=== PATIENT | female | born 1950 | race African-American/Black ===

== ENCOUNTER 2016-08-22 21:47 | Inpatient (IN) | payer MEDICARE, MEDICAID ==
[~2016-08-22] VITALS: Ht 170.2 cm; Wt 62.1 kg
[2016-08-22] MEDS ORDERED: SEROQUEL XR400 MG ORAL (22:57)
[2016-08-22] MEDS ORDERED: DIPHENHYDRAMINE25 M3 ORAL (23:46)
[2016-08-22] MEDS ORDERED: DICLOFENAC SODI50 MG ORAL (23:46)
[2016-08-22] MEDS ORDERED: METFORMIN HCL500 M1 ORAL (23:46)
[2016-08-22] MEDS ORDERED: LORATADINE10 M2 PO (23:46)
[2016-08-22] MEDS ORDERED: DOC-Q-LACE100 M1 ORAL (23:46)
[2016-08-22] MEDS ORDERED: ASPIRIN81 MG ORAL (23:46)
[2016-08-22] MEDS ORDERED: SERTRALINE HCL25 MG ORAL (23:46)
[2016-08-22] MEDS ORDERED: SIMVASTATIN20 MG ORAL (23:46)
[2016-08-22] MEDS ORDERED: HYDROCHLOROTH12.5 M2 ORAL (23:46)
[2016-08-22] MEDS ORDERED: METOPROLOL SUCC25 MG ORAL (23:46)
[2016-08-22] MEDS ORDERED: OXYCODON-ACETA1 EAC2 ORAL (23:46)
[2016-08-22] MEDS ORDERED: MIRTAZAPINE15 M1 ORAL (23:46)
[2016-08-22] MEDS ORDERED: FERROUS SULFAT325 MG ORAL (23:46)
[2016-08-22] MEDS ORDERED: BACLOFEN10 MG ORAL (23:46)
[2016-08-23] VITALS: BP 132/64
[2016-08-23] MEDS ORDERED: Baclofen ORAL (00:49)
[2016-08-23] MEDS: Promethazine/Codeine 5ml UD ORAL PRN ×3 (01:43→11:48)
[2016-08-23] MEDS ORDERED: LORazepam Inj 2mg/ml 1ml IV ONE (02:00)
[2016-08-23] MEDS ORDERED: Cefepime 1gm/D5W 55ml IVPB ONE ×2 (02:30)
[2016-08-23] MEDS ORDERED: Cefepime 1gm vial ONE (02:45)
[2016-08-23 04:00] VITALS: BP 136/79
[2016-08-23] MEDS ORDERED: Docusate 250mg cap ORAL PRN (06:00)
[2016-08-23] MEDS: metroNIDAZOLE 500mg tab ORAL SCH ×3 (06:13→21:17)
[2016-08-23 08:00] VITALS: BP 158/78
[2016-08-23 08:04] LABS: MEAN CORPUSCULAR HEMOGLOBIN 25.7 PG (27.0-31.0); MEAN CORPUSCULAR HGB CONC 31.4 G/DL (32.0-36.0); MEAN CORPUSCULAR VOLUME 82 FL (80-99); MEAN PLATELET VOLUME 5.3 FL (6.5-10.1); PLATELET COUNT 439 K/UL (150-450); RED BLOOD COUNT 2.86 M/UL (4.20-5.40); RED CELL DISTRIBUTION WIDTH 17.3 % (11.6-14.8)
[2016-08-23 08:12] LABS: ANION GAP 19 (5-15); CALCIUM 9.5 mg/dL (8.6-10.2); CARBON DIOXIDE 20 mEQ/L (20-30); CHLORIDE 95 mEQ/L (98-107); CREATININE 0.7 mg/dL (0.5-0.9); GLOMERULAR FILTRATION RATE > 60 mL/min (>60); HEMOLYSIS 0; MAGNESIUM 1.6 mg/dL (1.7-2.5); PHOSPHORUS 2.7 mg/dL (2.5-4.8); POTASSIUM 3.3 mEQ/L (3.4-4.9); SODIUM 134 mEQ/L (135-145)
[2016-08-23 08:21] LABS: WHITE BLOOD COUNT 28.2 K/UL (4.8-10.8)
[2016-08-23] MEDS: Sertraline 50mg tab ORAL SCH (09:15)
[2016-08-23 10:48] LABS: ANISOCYTOSIS 1+; BAND NEUTROPHILS % (MANUAL) 0 % (0-8); BASOPHILS % (MANUAL) 0 % (0-2); EOSINOPHILS % (MANUAL) 0 % (0-3); HYPOCHROMASIA 1+; LYMPHOCYTES % (MANUAL) 8 % (20-45); NEUTROPHILS % (MANUAL) 89 % (45-75); PLATELET ESTIMATE ADEQUATE; PLATELET MORPHOLOGY NORMAL; TOTAL CELLS COUNTED 100
[2016-08-23] MEDS ORDERED: DiphenhydrAMINE 25mg/10ml Elixir ORAL PRN (11:45)
[2016-08-23] MEDS ORDERED: DuoNeb 0.5-3(2.5)mg/3ml neb HHN PRN (11:45)
--- NOTE | 2016-08-23 11:58 | Consultation ---
History of Present Illness General Date patient seen: Aug 23, 2016 Time patient seen: 11:52 Chief Complaint: hemoptysis Referring physician: Dr. Alba Reason for Consultation: dyspnea Present Illness HPI 75 year old female with hx of breast and lung CA, visiting from [place], was taken to [facility] with cc of uncontrolled htn and hemoptysis. The cxr in [place] revealed that she has right upper lobe mass. She was transferred to [facility] for further care. Currently the entire family is in the room. The daughters help with the PMHx. She looks comfortable, slightly confused, coughing up blood at times. Allergies: Coded Allergies: IBUPROFEN (Verified Allergy, Unknown, 08/23/16) Medication History Scheduled Docusate Sodium (Doc-Q-Lace), 100 MG ORAL PRN, (Reported) Ferrous Sulfate* (Ferrous Sulfate*), 325 MG ORAL DAILY, (Reported) Loratadine (Loratadine), 10 MG PO DAILY, (Reported) Metformin Hcl* (Metformin Hcl*), 500 MG ORAL TWICE A DAY, (Reported) Metoprolol Succinate* (Metoprolol Succinate*), 25 MG ORAL TWICE A DAY, (Reported ) Mirtazapine (Mirtazapine), 15 MG ORAL BEDTIME, (Reported) Oxycodone Hcl/Acetaminophen 7.5-325 (Oxycodon-Acetaminophen 7.5-325), 1 TAB ORAL BID, (Reported) Quetiapine Fumarate (Seroquel Xr), 400 MG ORAL BEDTIME, (Reported) Sertraline Hcl* (Sertraline Hcl*), 50 MG ORAL DAILY, (Reported) [Baclofen*], 10 MG ORAL PRN, (Reported) Scheduled PRN Diphenhydramine Hcl (Diphenhydramine Hcl), 25 MG ORAL BEDTIME PRN for Itching, ( Reported) Miscellaneous Medications Hydrochlorothiazide* (Hydrochlorothiazide*), 12.5 MG ORAL, (Reported) Discontinued Medications Aspirin* (Aspirin*), 81 MG ORAL DAILY, (Reported) Discontinued Reason: MD discontinued med Baclofen* (Baclofen*), 10 MG ORAL TWICE A DAY, (Reported) Discontinued Reason: Prescription changed Diclofenac Sod* (Voltaren*), 50 MG ORAL TWICE A DAY, (Reported) Discontinued Reason: MD discontinued med Simvastatin (Zocor), 20 MG ORAL BEDTIME, (Reported) Discontinued Reason: MD discontinued med Patient History Healthcare decision maker pt alert and oriented Resuscitation status Full Code Advanced Directive on File Past Medical/Surgical History Past Medical/Surgical History: (1) Lung cancer Review of Systems Respiratory: Reports: cough, other - hemoptysis, shortness of breath Physical Exam General Appearance: cachetic Lines, tubes and drains: peripheral HEENT: normocephalic, atraumatic Neck: non-tender, normal alignment Respiratory/Chest: chest wall non-tender, lungs clear Breasts: no masses Cardiovascular/Chest: normal peripheral pulses Abdomen: normal bowel sounds, non tender Genitourinary/Rectal: normal genital exam Extremities: normal range of motion Skin Exam: normal pigmentation Last 24 Hour Vital Signs Date Time Temp Pulse Resp B/P Pulse Ox O2 Delivery O2 Flow Rate FiO2 08/23/16 09:15 91 158/78 08/23/16 08:00 98.2 91 19 158/78 99 Nasal Cannula 08/23/16 04:00 97.0 89 20 136/79 94 Room Air 08/23/16 04:00 92 08/23/16 00:00 92 08/23/16 00:00 97.0 85 20 132/64 94 Room Air Intake and Output 08/22/16 08/23/16 19:00 07:00 Intake Total 110 ml Balance 110 ml Intake Oral 0 ml IV Total 110 ml Laboratory Tests Test 08/23/16 07:30 White Blood Count 28.2 K/UL (4.8-10.8) *H Red Blood Count 2.86 M/UL (4.20-5.40) L Hemoglobin 7.3 G/DL (12.0-16.0) L Hematocrit 23.4 % (37.0-47.0) L Mean Corpuscular Volume 82 FL (80-99) Mean Corpuscular Hemoglobin 25.7 PG (27.0-31.0) L Mean Corpuscular Hemoglobin Concent 31.4 G/DL (32.0-36.0) L Red Cell Distribution Width 17.3 % (11.6-14.8) H Platelet Count 439 K/UL (150-450) Mean Platelet Volume 5.3 FL (6.5-10.1) L Neutrophils (%) (Auto) % (45.0-75.0) Lymphocytes (%) (Auto) % (20.0-45.0) Monocytes (%) (Auto) % (1.0-10.0) Eosinophils (%) (Auto) % (0.0-3.0) Basophils (%) (Auto) % (0.0-2.0) Differential Total Cells Counted 100 Neutrophils % (Manual) 89 % (45-75) H Lymphocytes % (Manual) 8 % (20-45) L Monocytes % (Manual) 3 % (1-10) Eosinophils % (Manual) 0 % (0-3) Basophils % (Manual) 0 % (0-2) Band Neutrophils 0 % (0-8) Platelet Estimate Adequate Platelet Morphology Normal Hypochromasia 1+ Anisocytosis 1+ Sodium Level 134 mEQ/L (135-145) L Potassium Level 3.3 mEQ/L (3.4-4.9) L Chloride Level 95 mEQ/L (98-107) L Carbon Dioxide Level 20 mEQ/L (20-30) Anion Gap 19 (5-15) H Blood Urea Nitrogen 16 mg/dL (7-23) Creatinine 0.7 mg/dL (0.5-0.9) Estimat Glomerular Filtration Rate > 60 mL/min (>60) Glucose Level 199 mg/dL (74-106) H Calcium Level 9.5 mg/dL (8.6-10.2) Phosphorus Level 2.7 mg/dL (2.5-4.8) Magnesium Level 1.6 mg/dL (1.7-2.5) L Height (Feet): 5 Height (Inches): 7.00 Weight (Pounds): 137 Medications Current Medications Medications (Trade) Dose Ordered Sig/Mariola Route PRN Reason Start Time Stop Time Status Last Admin Dose Admin Acetaminophen (Tylenol) 650 mg Q6H PRN ORAL Mild Pain/Temp > 100.5 08/23/16 00:15 09/22/16 00:14 Baclofen 10 mg 10 mg PRN PRN ORAL Muscle Spasm 08/23/16 06:00 09/22/16 05:59 Cefepime HCl/ Dextrose (Maxipime/D5W) 55 ml @ 110 mls/hr Q24H IVPB 08/23/16 22:00 08/30/16 21:59 Diphenhydramine HCl (Benadryl) 25 mg HSPRN PRN ORAL Insomnia 08/23/16 06:00 09/22/16 05:59 Docusate Sodium (Colace) 100 mg DAILY PRN ORAL Constipation 08/23/16 06:00 09/22/16 05:59 Ferrous Sulfate (Feosol) 325 mg DAILY ORAL 08/23/16 09:00 09/22/16 08:59 08/23/16 09:15 Fexofenadine HCl (Scarlett) 60 mg TWICE A DAY ORAL 08/23/16 09:00 09/22/16 08:59 08/23/16 10:22 Hydrochlorothiazide (Hydrodiuril) 12.5 mg DAILY ORAL 08/23/16 09:00 09/22/16 08:59 08/23/16 09:15 Magnesium Sulfate (Magnesium Sulfate 1gm/100ml) 100 ml @ 100 mls/hr Q1H IVPB 08/23/16 11:30 08/23/16 13:29 UNV Metoprolol Succinate (Toprol XL) 25 mg TWICE A DAY ORAL 08/23/16 09:00 09/22/16 08:59 08/23/16 09:15 Metronidazole (Flagyl) 500 mg Q8HR ORAL 08/23/16 06:00 08/30/16 05:59 08/23/16 06:13 Potassium Chloride (K-Dur) 40 meq ONCE ONCE ORAL 08/23/16 11:30 08/23/16 11:31 UNV Promethazine HCl/ Codeine (Phenergan with Codeine) 5 ml Q4H PRN ORAL For Cough 08/23/16 01:30 09/22/16 01:29 08/23/16 06:13 Quetiapine Fumarate (SEROquel) 400 mg Q24HRS ORAL 08/23/16 21:00 09/22/16 20:59 Sertraline HCl (Zoloft) 50 mg DAILY ORAL 08/23/16 09:00 09/22/16 08:59 08/23/16 09:15 Assessment/Plan Problem List: (1) Hemoptysis ICD Codes: R04.2 - Hemoptysis SNOMED: 84942268 (2) Sepsis ICD Codes: A41.9 - Sepsis, unspecified organism SNOMED: 51152737 (3) Pneumonia ICD Codes: J18.9 - Pneumonia, unspecified organism SNOMED: 237648256 (4) Lung cancer ICD Codes: C34.90 - Malignant neoplasm of unspecified part of unspecified bronchus or lung SNOMED: 815853327 (5) HTN (hypertension) ICD Codes: I10 - Essential (primary) hypertension SNOMED: 59529824 Assessment/Plan mejia cultures IV antibiotics Amicar for bleeding respiratory treatment JUSTIN LANG Aug 23, 2016 11:58
[2016-08-23 12:00] VITALS: BP 136/72
--- NOTE | 2016-08-23 13:33 | Diagnostic Imaging Report ---
Indications: Hemoptysis, history of lung and breast cancer Technique: Continuous helical CT imaging of the thorax and upper abdomen was performed with automatic exposure control on a Siemens sensation [address] scanner. Axial images were reconstructed at 5 mm slice thickness and interval. Coronal images were reconstructed at 5 mm slice thickness. No IV contrast was administered secondary to requesting physician's order, despite no contraindications listed. CTDI volume(s): 19 mGy Total DLP: 656 mGy-cm Findings: Comparison: Chest radiograph 12/28/2011 Lack of IV contrast limits evaluation. Circumscribed masslike consolidative opacity occupies much of the right upper lobe, 10 x 7 x 8 cm. It contains several small gas bubbles in its cephalad aspect. It extends to the apical, lateral, and medial pleural margins without obvious invasion into the overlying chest wall or adjacent mediastinum. It is contiguous with abnormal soft tissue density in the right hilum and adjacent portions of mediastinum. This process partially envelops the right mainstem bronchus and bronchus intermedius. There is associated complete obstruction of the right upper lobe bronchus at its origin. Patchy parenchymal consolidation and increased interstitial markings are present in the residual portions of right upper lobe adjacent to the masslike opacity and right hilum. Patchy mixed interstitial and consolidative airspace opacities are present in the right middle and lower lobes. Right lung volume is overall significantly decreased compared left with elevation of right hemidiaphragm and mild rightward shift of cardiomediastinal structures. Multiple small circumscribed noncalcified nodules are scattered throughout the periphery of the left lung. No pleural abnormality demonstrated bilaterally. Heart is normal in size. No pericardial abnormality is demonstrated. Scattered arterial mural calcifications are present including prominent coronary artery involvement. Vascular patency is indeterminate. Thoracic aorta is not aneurysmal. Multiple surgical clips are present in the right axilla. Edema is present throughout the chest wall subcutaneous soft tissues. Prominent lymph nodes are present in the left axilla measuring up to 2 cm in diameter. Imaged upper abdominal anatomy is unremarkable. Small disc marginal osteophytes are scattered throughout the thoracic spine. Moderate compression fracture of the superior endplate of the T7 vertebral body with subjacent sclerosis. No associated posterior element involvement or underlying lytic destructive process. Chronic appearing deformity and probable healed surgical defect of the sternal manubrium. No focal lytic or sclerotic skeletal lesions identified. IMPRESSION: 10 cm masslike opacity right upper lobe compatible with primary lung malignancy, apparently contiguous with right hilar and mediastinal adenopathy. Associated complete obstruction of right upper lobe bronchus with overall right lung volume loss Nonspecific mixed interstitial and alveolar opacities in the remainder of the right upper lobe, right midlung lower lobes, nonspecific, may be inflammatory or neoplastic in nature Multiple left lung nodules--granulomatous versus metastatic Arteriosclerosis Previous right axillary surgery Mild left axillary adenopathy Chronic-appearing post surgical deformity sternal manubrium T7 vertebral body compression fracture likely old Mild degenerative spondylosis
[2016-08-23] MEDS ORDERED: Aminocaproic Acid Inj 5,000 MG in NS 110 ML IV ONE (14:00)
[2016-08-23] MEDS ORDERED: Vancomycin 1250mg/D5W 275ml IVPB ONE ×2 (15:00)
--- NOTE | 2016-08-23 15:24 | Diagnostic Imaging Report ---
Indications: Hemoptysis, lung cancer, breast cancer Technique: Continuous helical CT imaging of the thorax and upper abdomen was performed with automatic exposure control following intravenous administration of nonionic iodine contrast, on a Siemens sensation [address] scanner. Axial, coronal, and sagittal images were reconstructed at 5 mm slice thickness. CTDI volume(s): 8, 81, 15 mGy Total DLP: 611 mGy-cm Findings: Comparison: Noncontrast CT scan of the thorax performed earlier today Main, right, and left pulmonary arteries are patent and well-opacified without obvious intraluminal filling defect. Right pulmonary artery is encased by abnormal low attenuation soft tissue/adenopathy. One of its upper lobe branches within the large right upper lobe mass previously described gives rise to a 3.3 cm multilobulated extraluminal contrast collection within the mass. Cephalad to this, the mass contains a 5.5 cm circumscribed area of decreased attenuation, at the interface of which resides several small gas bubbles. A cluster of additional small gas bubbles is present within the central aspect of the mass, adjacent to the occluded origin of the right upper lobe bronchus. The mass and contiguous hilar/mediastinal adenopathy encases and severely, irregularly narrows the superior vena cava, minimal diameter 1.5 mm, the latter apparently containing several globular low attenuation intraluminal filling defects. One of these resides at the level of the junction of the unopacified right and contrast injection opacified left brachiocephalic veins, the other at the level of the cavoatrial junction. No obvious filling defects are identified within the heart chambers themselves. Thoracic aorta and great vessels are patent and well-opacified with mild scattered calcified plaquing, normal in caliber and configuration. No evidence of aneurysm, dissection,, leak, or invasion. Bilateral pulmonary parenchymal opacities previously described are unchanged. No other interval change. 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 This is at considerable risk of spontaneous rupture and intrathoracic versus intrabronchial exsanguination. 5.5 cm area of low attenuation within cephalad portion of mass likely represents necrosis. Small gas bubbles at the periphery may be part of the chronic process and/or represent pathologic communication with bronchus. Significant compression of superior vena cava by mass. Intraluminal filling defect within upper portion of superior vena cava and may represent unopacified blood entering from right brachiocephalic vein, bland or tumor thrombus. Intraluminal filling defect at cavoatrial junction or suspicious for bland versus tumor thrombus. No other significant interval change or additional findings compared to previous exam. Critical results discussed with Drs. Alba and Gui, , by telephone at time of this dictation
[2016-08-23 15:57] VITALS: BP 152/68
--- NOTE | 2016-08-23 17:35 | History & Physical ---
History and Physical History & Physicial Dictated for Int Med - Dr Alba no. [id number]. Transfuse 2 units PRBC today. CHELLY CHEN Aug 23, 2016 17:35
[2016-08-23 20:00] VITALS: BP 151/68
--- NOTE | 2016-08-23 20:28 | History and Physical Report ---
DATE OF ADMISSION: 08/22/[address] Alba. CHIEF COMPLAINT: The patient is a 66-year-old female, presents with chief complaint of coughing up blood. HISTORY OF PRESENT ILLNESS: The patient has a history of breast cancer, status post radiation therapy. The patient was diagnosed with metastatic breast cancer 90 days ago. The patient now has a mass in her right lung. The patient states that she began to vomit blood about 90 days ago. The patient did not go to the emergency room. The patient states she began to cough up more blood yesterday, 08/22/2016. The patient was taken by EMS to [facility] emergency room. The patient was stabilized. The patient is transported to [facility] for insurance purposes. The patient is admitted with chief complaint of hemoptysis and right upper lobe lung cancer. Hemoptysis and lung cancer. Of note, the patient was diagnosed with right upper lobe pneumonia at [place]. PAST MEDICAL HISTORY: Significant for 1. Right breast cancer status post radiation therapy. 2. Diabetes type 2. 3. Hypertension. 4. Hypercholesterolemia. 5. Depression. 6. History of right breast cancer. 7. History of right lung cancer. PAST SURGICAL HISTORY: Significant for coronary artery bypass graft in 2007. CURRENT MEDICATIONS: 1. Seroquel 400 mg one tablet p.o. at bedtime. 2. Hydrochlorothiazide 25 mg one-half tablet p.o. daily. 3. Zoloft 50 mg one tablet p.o. daily. 4. Aspirin 81 mg one tablet p.o. daily. 5. Voltaren 50 mg one tablet p.o. twice daily. 6. Claritin 10 mg one tablet p.o. daily. 7. Iron sulfate 325 mg one tablet p.o. daily. 8. Glucophage 500 mg one tablet p.o. twice daily. 9. Zocor 20 mg one tablet p.o. at bedtime. 10. Baclofen 10 mg one tablet p.o. twice daily. 11. Toprol-XL 25 mg one tablet p.o. twice daily. 12. Oxycodone 7.5/325 mg one tablet p.o. q.4 h. p.r.n. ALLERGIES: No known drug allergies. SOCIAL HISTORY: The patient is single, however, lives with her grown daughter. The patient is visiting from [place]. The patient denies tobacco use, having quit 90 days previously. The patient previously smoked one pack of tobacco daily. The patient denies alcohol use. REVIEW OF SYSTEMS: Constitutional: The patient complains of anorexia. The patient denies generalized weakness. The patient complains of fevers and chills. The patient complains of weight loss. HEENT: The patient denies ear or throat pain. The patient denies headache. Cardiovascular: The patient denies palpitations or chest pain. Chest: The patient complains of hemoptysis as above. The patient complains of shortness of breath. The patient denies wheezes. Abdomen: The patient denies nausea, vomiting, diarrhea or constipation. The patient does complain of anorexia. Neuromuscular: The patient denies seizures or generalized weakness. Genitourinary: The patient denies dysuria or increased frequency of urination. PHYSICAL EXAMINATION: VITAL SIGNS: Temperature 97 degrees, respirations 20, pulse 85 to 92, and blood pressure 132/64. Of note, the patient's temperature at [place] was 101.2 degrees Fahrenheit. HEENT: Eyes, pupils are equal and responsive to light and accommodation. Extraocular movements are intact. NECK: Supple. No lymphadenopathy. CHEST: Decreased breath sounds on the right. Otherwise, clear to auscultation without wheezes or rales. CARDIOVASCULAR: Regular rate. S1 and S2 normal without murmurs, rubs, or gallops. ABDOMEN: Soft, nontender, and nondistended. Positive bowel sounds. No evidence of hepatosplenomegaly. Currently, no rebound or guarding. EXTREMITIES: Negative for clubbing, cyanosis, or edema. RECTAL/GENITAL: Refused. NEUROLOGICAL: Cranial nerves II through XII are grossly intact without focal deficits. Motor strength is 5/5 bilaterally. Deep tendon reflexes are 2+ plantar. LABORATORY AND DIAGNOSTIC DATA: WBC 24.3, hemoglobin 7.8, hematocrit 23.5, and platelets 451,000. Sodium 135, potassium 3.7, chloride 102, CO2 22, BUN 20, creatinine 0.94 and glucose 143. Chest x-ray revealed a 9.5 x 8 centimeter right upper lobe mass with right lower lobe infiltrate. ASSESSMENT: This is a 66-year-old female 1. Fever. 2. Shortness of breath. 3. Hemoptysis. 4. Leukocytosis. 5. Anemia. 6. Right upper lobe mass. 7. Right lower lobe pneumonia. 8. Diabetes type 2. 9. Hypertension. 10. Hypercholesterolemia. 11. Coronary artery disease. 12. Depression. 13. Lung cancer. 14. Breast cancer. TREATMENT: 1. Fever/shortness of breath/hemoptysis. A Pulmonary consultation will be obtained with Dr. Messer. The patient has known right upper lobe lung mass. An Oncology consultation will be obtained with Dr. Chen. We will follow recommendations of Pulmonary and Oncology. The patient has refused chemotherapy for cancer in the past. 2. Leukocytosis, may be secondary to pneumonia as above. 3. Right upper lobe mass/right lower lobe pneumonia. As above, a Pulmonary consultation will be obtained with Dr. Ellis who is drowsy. The patient has been started empirically on vancomycin and cefepime. We will follow recommendation of Pulmonary and Oncology. 4. Diabetes type 2. The patient has been placed on a NovoLog sliding scale. 5. Hypertension. The patient is currently hypotensive. We will hold antihypertensive medications above. 6. Hypercholesterolemia. Continue Zocor as above. 7. Coronary artery disease. 8. Depression. Continue Zoloft and Seroquel as above. 9. Prognosis is poor. Austen Ellis M.D. DR: JARETH JOB#: [id number] CC:
--- NOTE | 2016-08-23 20:55 | Consultation ---
Ted ChenEris 08/23/162054: Consult Note Consult Note ONCOLOGY CONSULTATION NOTE REQUESTING MD: APRIL DATE OF CONSULT: 08/23/2016 CHIEF COMPLAINT: The patient is a 66-year-old female, presents with chief complaint of coughing up blood. ID: he patient has a history of breast cancer, status post radiation therapy. The patient was diagnosed with metastatic breast cancer recently The patient now has a mass in her right lung. The patient states that she began to vomit blood recently The patient did not go to the emergency room. The patient states she began to cough up more blood yesterday, 08/22/2016. The patient was taken by EMS to [facility] emergency room. The patient was stabilized. The patient is transported to [facility] for insurance purposes. The patient is admitted with chief complaint of hemoptysis and right upper lobe lung cancer. Oncology service and pulm/cc consulted for further eval PAST MEDICAL HISTORY: 1. Right breast cancer status post radiation therapy. 2. Diabetes type 2. 3. Hypertension. 4. Hypercholesterolemia. 5. Depression. 6. History of right breast cancer. 7. History of right lung cancer. PAST SURGICAL HISTORY: Significant for coronary artery bypass graft in 2007. CURRENT MEDICATIONS: 1. Seroquel 400 mg one tablet p.o. at bedtime. 2. Hydrochlorothiazide 25 mg one-half tablet p.o. daily. 3. Zoloft 50 mg one tablet p.o. daily. 4. Aspirin 81 mg one tablet p.o. daily. 5. Voltaren 50 mg one tablet p.o. twice daily. 6. Claritin 10 mg one tablet p.o. daily. 7. Iron sulfate 325 mg one tablet p.o. daily. 8. Glucophage 500 mg one tablet p.o. twice daily. 9. Zocor 20 mg one tablet p.o. at bedtime. 10. Baclofen 10 mg one tablet p.o. twice daily. 11. Toprol-XL 25 mg one tablet p.o. twice daily. 12. Oxycodone 7.5/325 mg one tablet p.o. q.4 h. p.r.n. ALLERGIES: No known drug allergies. SOCIAL HISTORY: single, however, lives with her grown daughter. The patient is visiting from [place]. The patient denies tobacco use, having quit 90 days previously. The patient previously smoked one pack of tobacco daily. The patient denies alcohol use. REVIEW OF SYSTEMS: Constitutional: The patient complains of anorexia. The patient denies generalized weakness. The patient complains of fevers and chills. The patient complains of weight loss. HEENT: The patient denies ear or throat pain. The patient denies headache. Cardiovascular: The patient denies palpitations or chest pain. Chest: The patient complains of hemoptysis as above. The patient complains of shortness of breath. The patient denies wheezes. Abdomen: The patient denies nausea, vomiting, diarrhea or constipation. The patient does complain of anorexia. Genitourinary: The patient denies dysuria or increased frequency of urination. PHYSICAL EXAMINATION: VITAL SIGNS: Reviewed and are stable HEENT: Eyes, pupils are equal and responsive to light and accommodation. NECK: Supple. No lymphadenopathy. CHEST: Decreased breath sounds on the right CARDIOVASCULAR: Regular rate. S1 and S2 normal without murmurs ABDOMEN: Soft, nontender, and nondistended. Positive bowel sounds. No evidence of hepatosplenomegaly. Currently, no rebound or guarding. EXTREMITIES: Negative for clubbing, cyanosis, or edema. RECTAL/GENITAL: Refused. NEUROLOGICAL: Cranial nerves II through XII are intact LABORATORY AND DIAGNOSTIC DATA: WBC 24.3, hemoglobin 7.8, hematocrit 23.5, and platelets 451,000. Sodium 135, potassium 3.7, chloride 102, CO2 22, BUN 20, creatinine 0.94 and glucose 143. Imaging: Chest x-ray revealed a 9.5 x 8 centimeter right upper lobe mass with right lower lobe infiltrate. ASSESSMENT: # 5.5 cm area of low attenuation within cephalad portion of mass likely represents necrosis. Small gas bubbles at the periphery may be part of the chronic process and/or represent pathologic communication with bronchus. 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 # Leukocytosis. # Right lower lobe pneumonia. # Diabetes type 2. # Hypertension. TREATMENT: - Given patient has refused chemotherapy/treatment before, will discuss with her in regards to conservative measures, especially as she has followup in [place] - Antibiotics as per ID/Pulm team for PNA - Appreciate pulmonary recommendations - Prognosis remains poor - Amicar for hemoptysis agree - Consider XRT for SVC compression though again she wants only conservative measures - Anemia w/u ordered - Continue ferrous sulfate and PPI - Appreciate consultation VIKTOR FITZGERALD M.D. 08/27/16 1313: Consult Note Consult Note ID Dic # [id number] Ted Chen Aug 23, 2016 20:55 VIKTOR FITZGERALD M.D. Aug 27, 2016 13:13
[2016-08-23 21:03] LABS: PATH BLOOD SMEAR/OMC SENT TO PATHOLOGIST
[2016-08-23 21:11] LABS: HEMOLYSIS 0; IRON 30 ug/dL (37-145); TOTAL IRON BINDING CAPACITY 153 ug/dL (250-400)
[2016-08-23] MEDS: oxyCONTIN 10mg tab ORAL SCH (21:16)
[2016-08-23] MEDS: QUEtiapine 200mg tab ORAL SCH (21:17)
[2016-08-23] MEDS: Dronabinol 2.5mg Cap ORAL SCH (21:17)
[2016-08-23 21:21] LABS: FERRITIN 859 ng/mL (13-150)
[2016-08-23] MEDS ORDERED: Cefepime HCl 1 GM in D5W 55 ML IVPB SCH (22:00)
[2016-08-23 22:01] LABS: INR 1.2 (0.9-1.1); PROTHROMBIN TIME 12.6 SEC (9.30-11.50)
[2016-08-24] VITALS: BP 99/52
[2016-08-24] MEDS: Promethazine/Codeine 5ml UD ORAL PRN (02:08)
[2016-08-24] MEDS: Vancomycin 750mg/D5W 275ml IVPB SCH ×4 (02:45→15:20)
[2016-08-24 04:00] VITALS: BP 97/54
[2016-08-24] MEDS: metroNIDAZOLE 500mg tab ORAL SCH ×3 (06:16→21:42)
[2016-08-24 07:51] VITALS: BP 96/47
[2016-08-24 07:57] LABS: MEAN CORPUSCULAR HEMOGLOBIN 26.2 PG (27.0-31.0); MEAN CORPUSCULAR HGB CONC 31.7 G/DL (32.0-36.0); MEAN CORPUSCULAR VOLUME 83 FL (80-99); MEAN PLATELET VOLUME 6.5 FL (6.5-10.1); PLATELET COUNT 352 K/UL (150-450); RED CELL DISTRIBUTION WIDTH 16.5 % (11.6-14.8)
[2016-08-24 08:21] LABS: WHITE BLOOD COUNT 29.8 K/UL (4.8-10.8)
[2016-08-24 08:23] LABS: ANION GAP 17 (5-15); CALCIUM 9.5 mg/dL (8.6-10.2); CARBON DIOXIDE 21 mEQ/L (20-30); CHLORIDE 95 mEQ/L (98-107); CREATININE 0.7 mg/dL (0.5-0.9); GLOMERULAR FILTRATION RATE > 60 mL/min (>60); HEMOLYSIS 0; POTASSIUM 3.5 mEQ/L (3.4-4.9); SODIUM 133 mEQ/L (135-145)
[2016-08-24] MEDS: Sertraline 50mg tab ORAL SCH (08:45)
[2016-08-24] MEDS: Dronabinol 2.5mg Cap ORAL SCH ×2 (08:46→17:47)
[2016-08-24] MEDS: oxyCONTIN 10mg tab ORAL SCH ×2 (08:46→21:42)
[2016-08-24] MEDS ORDERED: Tubing Blood Filter IV ONE (10:14)
[2016-08-24] MEDS ORDERED: Tubing IV Secondary IV ONE (10:14)
[2016-08-24] MEDS ORDERED: NS 275ml ONE (10:14)
[2016-08-24 10:28] LABS: ANISOCYTOSIS 1+; BAND NEUTROPHILS % (MANUAL) 0 % (0-8); BASOPHILS % (MANUAL) 0 % (0-2); EOSINOPHILS % (MANUAL) 1 % (0-3); HYPOCHROMASIA 2+; LYMPHOCYTES % (MANUAL) 6 % (20-45); NEUTROPHILS % (MANUAL) 89 % (45-75); PLATELET ESTIMATE ADEQUATE; TOTAL CELLS COUNTED 100
[2016-08-24 10:29] LABS: PLATELET MORPHOLOGY NORMAL
[2016-08-24 11:19] VITALS: BP 96/48
[2016-08-24] MEDS: Cefepime HCl 1 GM in D5W 55 ML IVPB SCH ×2 (14:20→23:30)
[2016-08-24 15:22] VITALS: BP 104/42
--- NOTE | 2016-08-24 15:59 | Internal Med Progress Note ---
Subjective Physician Name Kvng Alba Attending Physician Kvng Alba MD Current Medications Medications (Trade) Dose Ordered Sig/Mariola Route PRN Reason Start Time Stop Time Status Last Admin Dose Admin Acetaminophen (Tylenol) 650 mg Q6H PRN ORAL Mild Pain/Temp > 100.5 08/23/16 00:15 09/22/16 00:14 Albuterol/ Ipratropium (DuoNeb 0.5-3(2.5)mg/3ml) 3 ml Q6H PRN HHN Shortness of Breath 08/23/16 11:45 08/28/16 11:44 Atropine Sulfate (Atropine Opth Verito) 1 drop Q2H PRN SL excessive secretions 08/23/16 13:00 09/22/16 12:59 Baclofen (Lioresal) 10 mg PRN PRN ORAL Muscle Spasm 08/23/16 06:00 09/22/16 05:59 Cefepime HCl/ Dextrose (Maxipime/D5W) 55 ml @ 110 mls/hr Q12HR IVPB 08/24/16 15:00 08/31/16 14:59 08/24/16 14:20 Diphenhydramine HCl (Benadryl) 12.5 mg Q4H PRN ORAL Itching/Pruritis 08/23/16 11:45 09/22/16 11:44 Diphenhydramine HCl (Benadryl) 25 mg HSPRN PRN ORAL Insomnia 08/23/16 06:00 09/22/16 05:59 Docusate Sodium (Colace) 100 mg DAILY PRN ORAL Constipation 08/23/16 06:00 09/22/16 05:59 Dronabinol 2.5 mg 2.5 mg BID ORAL 08/23/16 21:00 09/22/16 20:59 08/24/16 08:46 Ferrous Sulfate (Feosol) 325 mg DAILY ORAL 08/23/16 09:00 09/22/16 08:59 08/24/16 08:46 Fexofenadine HCl (Scarlett) 60 mg TWICE A DAY ORAL 08/23/16 09:00 09/22/16 08:59 08/24/16 08:46 Hydrochlorothiazide (Hydrodiuril) 12.5 mg DAILY ORAL 08/23/16 09:00 09/22/16 08:59 08/23/16 09:15 Hydromorphone HCl (Dilaudid) 2 mg Q3H PRN IV Severe Pain (Pain Scale 7-10) 08/23/16 11:45 08/30/16 11:44 08/24/16 15:20 Metoprolol Succinate (Toprol XL) 25 mg TWICE A DAY ORAL 08/23/16 09:00 09/22/16 08:59 08/23/16 17:16 Metronidazole (Flagyl) 500 mg Q8HR ORAL 08/23/16 06:00 08/30/16 05:59 08/24/16 14:19 Ondansetron HCl (Zofran) 4 mg Q6H PRN IVP Nausea & Vomiting 08/23/16 11:45 09/22/16 11:44 Oxycodone HCl (OxyCONTIN) 10 mg EVERY 12 HOURS ORAL 08/23/16 21:00 08/30/16 20:59 08/24/16 08:46 Pantoprazole (Protonix) 40 mg DAILY ORAL 08/24/16 09:00 09/23/16 08:59 08/24/16 08:46 Promethazine HCl/ Codeine (Phenergan with Codeine) 5 ml Q4H PRN ORAL For Cough 08/23/16 01:30 09/22/16 01:29 08/24/16 02:08 Quetiapine Fumarate (SEROquel) 400 mg Q24HRS ORAL 08/23/16 21:00 09/22/16 20:59 08/23/16 21:17 Sertraline HCl (Zoloft) 50 mg DAILY ORAL 08/23/16 09:00 09/22/16 08:59 08/24/16 08:45 Vancomycin HCl 1 ea 1 ea DAILY PRN MISC Per rx protocol 08/23/16 11:45 09/22/16 11:44 Vancomycin HCl/ Dextrose (Vancomycin/D5W) 275 ml @ 183.708 mls/hr Q12HR@0300,1500 IVPB 08/24/16 03:00 08/29/16 02:59 08/24/16 15:20 Allergies: Coded Allergies: IBUPROFEN (Verified Allergy, Unknown, 08/23/16) Subjective awake, alert, responsive, daughter at bedside, coughing blood, C/O chest wall pain Objective Last Vital Signs Date Time Temp Pulse Resp B/P Pulse Ox O2 Delivery O2 Flow Rate FiO2 08/24/16 15:22 96.2 79 18 104/42 95 Room Air Laboratory Tests Test 08/23/16 21:10 08/24/16 06:35 Prothrombin Time 12.6 SEC (9.30-11.50) H Prothromb Time International Ratio 1.2 (0.9-1.1) H Fibrinogen 700 mg/dL (200-400) H White Blood Count 29.8 K/UL (4.8-10.8) *H Red Blood Count 3.10 M/UL (4.20-5.40) L Hemoglobin 8.1 G/DL (12.0-16.0) L Hematocrit 25.7 % (37.0-47.0) L Mean Corpuscular Volume 83 FL (80-99) Mean Corpuscular Hemoglobin 26.2 PG (27.0-31.0) L Mean Corpuscular Hemoglobin Concent 31.7 G/DL (32.0-36.0) L Red Cell Distribution Width 16.5 % (11.6-14.8) H Platelet Count 352 K/UL (150-450) Mean Platelet Volume 6.5 FL (6.5-10.1) Neutrophils (%) (Auto) % (45.0-75.0) Lymphocytes (%) (Auto) % (20.0-45.0) Monocytes (%) (Auto) % (1.0-10.0) Eosinophils (%) (Auto) % (0.0-3.0) Basophils (%) (Auto) % (0.0-2.0) Differential Total Cells Counted 100 Neutrophils % (Manual) 89 % (45-75) H Lymphocytes % (Manual) 6 % (20-45) L Monocytes % (Manual) 4 % (1-10) Eosinophils % (Manual) 1 % (0-3) Basophils % (Manual) 0 % (0-2) Band Neutrophils 0 % (0-8) Platelet Estimate Adequate Platelet Morphology Normal Hypochromasia 2+ Anisocytosis 1+ Sodium Level 133 mEQ/L (135-145) L Potassium Level 3.5 mEQ/L (3.4-4.9) Chloride Level 95 mEQ/L (98-107) L Carbon Dioxide Level 21 mEQ/L (20-30) Anion Gap 17 (5-15) H Blood Urea Nitrogen 15 mg/dL (7-23) Creatinine 0.7 mg/dL (0.5-0.9) Estimat Glomerular Filtration Rate > 60 mL/min (>60) Glucose Level 136 mg/dL (74-106) H Calcium Level 9.5 mg/dL (8.6-10.2) Intake and Output 08/23/16 08/24/16 19:00 07:00 Intake Total 240 ml 541.708 ml Balance 240 ml 541.708 ml Intake Oral 240 ml 120 ml IV Total 421.708 ml # Voids 2 # Bowel Movements 1 1 Objective General: No acute distress, awake and alert HEENT: NCAT, sclera anicteric, PERRL, EOMI. Neck: Supple, no significant jugular venous distention, Lungs: Good inspiratory effort, no accessory muscle use, clear to auscultation bilaterally, no Wheeze or Rales. Decrease breath sound on bases. Chest wall: Right lumpectomy noted. Heart: Regular rate and rhythm, normal S1/S2, no murmurs Abdomen: soft, nontender, nondistended. Normoactive bowel sounds. / Rectal: Refused and deferred. Extremities: No Cyanosis , clubbing or edema. Neuro: A&O x 3, Able to move all extremities Skin: warm, no rashes or lesions Psych: Normal mood and affect Assessment/Plan Assessment/Plan 1. Fever. 2. Shortness of breath. 3. Hemoptysis. 4. Leukocytosis. 5. Anemia. 6. Right upper lobe mass. 7. Right lower lobe pneumonia. 8. Diabetes type 2. 9. Hypertension. 10. Hypercholesterolemia. 11. Coronary artery disease. 12. Depression. 13. Right Breast cancer. 14. 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 Plan: Monitor Labs including H/H Abx: Cefepime and Vanco discuss with daughter and patient at bedside with regard to CT chest finding and transfer to [facility] Call transfer center at [facility] discuss with CT surgery at [facility] Dr. Thomas F/U with Kvng De La Torre MD Aug 24, 2016 15:59
--- NOTE | 2016-08-24 16:17 | General Progress Note ---
Assessment/Plan Assessment/Plan ASSESSMENT: # 5.5 cm area of low attenuation within cephalad portion of mass likely represents necrosis. Small gas bubbles at the periphery may be part of the chronic process and/or represent pathologic communication with bronchus. 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 # Leukocytosis. # Right lower lobe pneumonia. # Diabetes type 2. # Hypertension. TREATMENT: - Given patient has refused chemotherapy/treatment before, needs tissue diagnosis or conservative care as per pt preference - Antibiotics as per ID/Pulm team for PNA - Appreciate pulmonary recommendations - Prognosis remains poor - Amicar for hemoptysis agree - Consider XRT for SVC compression though again she wants only conservative measures - Anemia w/u ordered - Continue ferrous sulfate and PPI - Appreciate consultation Subjective Constitutional: Reports: weakness HEENT: Reports: no symptoms Cardiovascular: Reports: no symptoms Respiratory: Reports: cough - hemoptysis Gastrointestinal/Abdominal: Reports: no symptoms Genitourinary: Reports: no symptoms Neurologic/Psychiatric: Reports: no symptoms Endocrine: Reports: no symptoms Hematologic/Lymphatic: Reports: anemia Allergies: Coded Allergies: IBUPROFEN (Verified Allergy, Unknown, 08/23/16) Subjective hemoptysis, chest wall pain Objective Last 24 Hour Vital Signs Date Time Temp Pulse Resp B/P Pulse Ox O2 Delivery O2 Flow Rate FiO2 08/24/16 15:22 96.2 79 18 104/42 95 Room Air 08/24/16 12:00 76 08/24/16 11:19 96.3 77 18 96/48 95 Room Air 08/24/16 09:20 71 17 Room Air 08/24/16 08:46 82 96/47 08/24/16 08:00 83 08/24/16 07:51 96.6 82 18 96/47 96 Room Air 08/24/16 04:00 76 08/24/16 04:00 97.7 75 20 97/54 94 Room Air 08/24/16 00:00 97.0 77 20 99/52 94 Room Air 08/24/16 00:00 73 08/23/16 20:00 97.0 91 20 151/68 94 Room Air 08/23/16 20:00 93 08/23/16 17:16 111 157/91 Intake and Output 08/23/16 08/24/16 19:00 07:00 Intake Total 240 ml 541.708 ml Balance 240 ml 541.708 ml Intake Oral 240 ml 120 ml IV Total 421.708 ml # Voids 2 # Bowel Movements 1 1 Laboratory Tests 08/23/16 21:10: Prothrombin Time 12.6H, Prothromb Time International Ratio 1.2H, Fibrinogen 700H 08/24/16 06:35: White Blood Count 29.8*H, Red Blood Count 3.10L, Hemoglobin 8.1L, Hematocrit 25.7L, Mean Corpuscular Volume 83, Mean Corpuscular Hemoglobin 26.2L, Mean Corpuscular Hemoglobin Concent 31.7L, Red Cell Distribution Width 16.5H, Platelet Count 352, Mean Platelet Volume 6.5, Neutrophils (%) (Auto) , Lymphocytes (%) (Auto) , Monocytes (%) (Auto) , Eosinophils (%) (Auto) , Basophils (%) (Auto) , Differential Total Cells Counted 100, Neutrophils % ( Manual) 89H, Lymphocytes % (Manual) 6L, Monocytes % (Manual) 4, Eosinophils % ( Manual) 1, Basophils % (Manual) 0, Band Neutrophils 0, Platelet Estimate Adequate, Platelet Morphology Normal, Hypochromasia 2+, Anisocytosis 1+, Sodium Level 133L, Potassium Level 3.5, Chloride Level 95L, Carbon Dioxide Level 21, Anion Gap 17H, Blood Urea Nitrogen 15, Creatinine 0.7, Estimat Glomerular Filtration Rate > 60, Glucose Level 136H, Calcium Level 9.5 Height (Feet): 5 Height (Inches): 7.00 Weight (Pounds): 137 General Appearance: WD/WN EENT: PERRL/EOMI Neck: non-tender Cardiovascular: normal peripheral pulses Respiratory/Chest: other - hemoptysis Abdomen: normal bowel sounds Extremities: normal range of motion Edema: no edema noted Leg (L), no edema noted Leg (R), no edema noted Pedal (L) , no edema noted Pedal (R), no edema noted Generalized Neurologic: mercury purifier II-XII grossly normal Skin: warm/dry Ted Chen Aug 24, 2016 16:17
[2016-08-24 20:00] VITALS: BP 99/56
[2016-08-24] MEDS: QUEtiapine 200mg tab ORAL SCH (21:42)
--- NOTE | 2016-08-24 22:01 | Pulmonology Progress Note ---
Assessment/Plan Problems: (1) Hemoptysis (2) Sepsis (3) Pneumonia (4) Lung cancer (5) HTN (hypertension) Assessment/Plan f/u cbc continue abx d/w radiologist and dr rivas check sputum Subjective ROS Limited/Unobtainable: No Interval Events: still coughing up blood Allergies: Coded Allergies: IBUPROFEN (Verified Allergy, Unknown, 08/23/16) Objective Last 24 Hour Vital Signs Date Time Temp Pulse Resp B/P Pulse Ox O2 Delivery O2 Flow Rate FiO2 08/24/16 21:23 70 17 Room Air 08/24/16 20:00 98.2 76 18 99/56 98 Room Air 08/24/16 17:47 79 104/42 08/24/16 16:00 79 08/24/16 15:22 96.2 79 18 104/42 95 Room Air 08/24/16 12:00 76 08/24/16 11:19 96.3 77 18 96/48 95 Room Air 08/24/16 09:20 71 17 Room Air 08/24/16 08:46 82 96/47 08/24/16 08:00 83 08/24/16 07:51 96.6 82 18 96/47 96 Room Air 08/24/16 04:00 76 08/24/16 04:00 97.7 75 20 97/54 94 Room Air 08/24/16 00:00 97.0 77 20 99/52 94 Room Air 08/24/16 00:00 73 Intake and Output 08/23/16 08/24/16 19:00 07:00 Intake Total 240 ml 541.708 ml Balance 240 ml 541.708 ml Intake Oral 240 ml 120 ml IV Total 421.708 ml # Voids 2 # Bowel Movements 1 1 General Appearance: WD/WN HEENT: normocephalic Respiratory/Chest: chest wall non-tender, lungs clear Cardiovascular: normal peripheral pulses, normal rate, no JVD Abdomen: normal bowel sounds, soft, non tender Genitourinary: normal external genitalia Skin: no rash Laboratory Tests 08/24/16 06:35: White Blood Count 29.8*H, Red Blood Count 3.10L, Hemoglobin 8.1L, Hematocrit 25.7L, Mean Corpuscular Volume 83, Mean Corpuscular Hemoglobin 26.2L, Mean Corpuscular Hemoglobin Concent 31.7L, Red Cell Distribution Width 16.5H, Platelet Count 352, Mean Platelet Volume 6.5, Neutrophils (%) (Auto) , Lymphocytes (%) (Auto) , Monocytes (%) (Auto) , Eosinophils (%) (Auto) , Basophils (%) (Auto) , Differential Total Cells Counted 100, Neutrophils % ( Manual) 89H, Lymphocytes % (Manual) 6L, Monocytes % (Manual) 4, Eosinophils % ( Manual) 1, Basophils % (Manual) 0, Band Neutrophils 0, Platelet Estimate Adequate, Platelet Morphology Normal, Hypochromasia 2+, Anisocytosis 1+, Sodium Level 133L, Potassium Level 3.5, Chloride Level 95L, Carbon Dioxide Level 21, Anion Gap 17H, Blood Urea Nitrogen 15, Creatinine 0.7, Estimat Glomerular Filtration Rate > 60, Glucose Level 136H, Calcium Level 9.5 Current Medications Medications (Trade) Dose Ordered Sig/Mariola Route PRN Reason Start Time Stop Time Status Last Admin Dose Admin Acetaminophen (Tylenol) 650 mg Q6H PRN ORAL Mild Pain/Temp > 100.5 08/23/16 00:15 09/22/16 00:14 Albuterol/ Ipratropium (DuoNeb 0.5-3(2.5)mg/3ml) 3 ml Q6H PRN HHN Shortness of Breath 08/23/16 11:45 08/28/16 11:44 Atropine Sulfate (Atropine Opth Verito) 1 drop Q2H PRN SL excessive secretions 08/23/16 13:00 09/22/16 12:59 Baclofen (Lioresal) 10 mg PRN PRN ORAL Muscle Spasm 08/23/16 06:00 09/22/16 05:59 Cefepime HCl/ Dextrose (Maxipime/D5W) 55 ml @ 110 mls/hr Q12HR IVPB 08/24/16 15:00 08/31/16 14:59 08/24/16 14:20 Diphenhydramine HCl (Benadryl) 12.5 mg Q4H PRN ORAL Itching/Pruritis 08/23/16 11:45 09/22/16 11:44 Diphenhydramine HCl (Benadryl) 25 mg HSPRN PRN ORAL Insomnia 08/23/16 06:00 09/22/16 05:59 Docusate Sodium (Colace) 100 mg DAILY PRN ORAL Constipation 08/23/16 06:00 09/22/16 05:59 Dronabinol 2.5 mg 2.5 mg BID ORAL 08/23/16 21:00 09/22/16 20:59 08/24/16 17:47 Ferrous Sulfate (Feosol) 325 mg DAILY ORAL 08/23/16 09:00 09/22/16 08:59 08/24/16 08:46 Fexofenadine HCl (Scarlett) 60 mg TWICE A DAY ORAL 08/23/16 09:00 09/22/16 08:59 08/24/16 17:46 Hydrochlorothiazide (Hydrodiuril) 12.5 mg DAILY ORAL 08/23/16 09:00 09/22/16 08:59 08/23/16 09:15 Hydromorphone HCl (Dilaudid) 2 mg Q3H PRN IV Severe Pain (Pain Scale 7-10) 08/23/16 11:45 08/30/16 11:44 08/24/16 15:20 Metoprolol Succinate (Toprol XL) 25 mg TWICE A DAY ORAL 08/23/16 09:00 09/22/16 08:59 08/23/16 17:16 Metronidazole (Flagyl) 500 mg Q8HR ORAL 08/23/16 06:00 08/30/16 05:59 08/24/16 21:42 Ondansetron HCl (Zofran) 4 mg Q6H PRN IVP Nausea & Vomiting 08/23/16 11:45 09/22/16 11:44 Oxycodone HCl (OxyCONTIN) 10 mg EVERY 12 HOURS ORAL 08/23/16 21:00 08/30/16 20:59 08/24/16 21:42 Pantoprazole (Protonix) 40 mg DAILY ORAL 08/24/16 09:00 09/23/16 08:59 08/24/16 08:46 Promethazine HCl/ Codeine (Phenergan with Codeine) 5 ml Q4H PRN ORAL For Cough 08/23/16 01:30 09/22/16 01:29 08/24/16 02:08 Quetiapine Fumarate (SEROquel) 400 mg Q24HRS ORAL 08/23/16 21:00 09/22/16 20:59 08/24/16 21:42 Sertraline HCl (Zoloft) 50 mg DAILY ORAL 08/23/16 09:00 09/22/16 08:59 08/24/16 08:45 Vancomycin HCl 1 ea 1 ea DAILY PRN MISC Per rx protocol 08/23/16 11:45 09/22/16 11:44 Vancomycin HCl/ Dextrose (Vancomycin/D5W) 275 ml @ 183.708 mls/hr Q12HR@0300,1500 IVPB 08/24/16 03:00 08/29/16 02:59 08/24/16 15:20 JUSTIN LANG Aug 24, 2016 22:01
--- NOTE | 2016-08-24 23:38 | Consultation ---
DATE OF CONSULTATION: 08/24/2016 CONSULTING PHYSICIAN: Juancarlos Haney M.D. HISTORY OF PRESENT ILLNESS: The patient is a 66-year-old, black female with a history of lung cancer and breast cancer who was admitted from [facility] due to uncontrolled hypertension and hemoptysis. The patient also has a history of depression and anxiety. During the evaluation, the patient was coughing up blood. The daughter was at bedside of her. She has mild cognitive impairment. She, however, during the evaluation was alert and oriented times person, place, time, and situation. She has difficulty remembering the events in the past. She also presents with depressed mood, decreased energy, anhedonia, worthlessness, and hopelessness. PAST PSYCHIATRIC HISTORY: The patient was diagnosed with depression. Has been treated with Zoloft and Seroquel. PAST MEDICAL HISTORY: Significant for lung cancer, sepsis, pneumonia, hypertension, and breast cancer. ALLERGIES: There are no known drug allergies. MEDICATIONS: 1. Seroquel 400 mg at bedtime. 2. Zoloft 50 mg daily. 3. Aspirin. 4. Voltaren. 5. Claritin. 6. Glucophage. 7. Zocor. 8. Baclofen. 9. Toprol. 10. Oxycodone. SUBSTANCE ABUSE: There is no history of illicit drug use or alcohol. The patient is a former smoker. SOCIAL HISTORY: The patient lives with her daughter. She is from [place]. MENTAL STATUS EXAMINATION: Alert and oriented x4. Her mood was depressed. Affect was constricted. Congruent mood. Thought process is concrete. Thought content, no suicidal or homicidal ideation. Cognition was mildly impaired. ASSESSMENT: AXIS I: Major depressive disorder. AXIS II: Deferred. AXIS III: As above. AXIS IV: Moderate. AXIS V: Global assessment of functioning is 20. PLAN: 1. The patient will be continued on Seroquel 400 mg at bedtime and Zocor 50 mg in the morning. 2. We will continue to follow and readjust the medications. Juancarlos Haney M.D. DR: CAMERON JOB#: [id number] CC:
[2016-08-25] VITALS (7 sets, daily range): BP systolic 102–124; BP diastolic 51–89
[2016-08-25] MEDS: Promethazine/Codeine 5ml UD ORAL PRN (02:47)
[2016-08-25] MEDS: Vancomycin 750mg/D5W 275ml IVPB SCH ×4 (03:37→14:37)
[2016-08-25] MEDS: metroNIDAZOLE 500mg tab ORAL SCH ×3 (06:52→22:21)
[2016-08-25] MEDS: Cefepime HCl 1 GM in D5W 55 ML IVPB SCH ×2 (08:39→20:17)
[2016-08-25] MEDS: Sertraline 50mg tab ORAL SCH (08:40)
[2016-08-25] MEDS: oxyCONTIN 10mg tab ORAL SCH ×2 (08:40→20:38)
[2016-08-25] MEDS: Dronabinol 2.5mg Cap ORAL SCH ×2 (08:40→18:42)
--- NOTE | 2016-08-25 11:32 | Pulmonology Progress Note ---
Assessment/Plan Problems: (1) Hemoptysis (2) Sepsis (3) Pneumonia (4) Lung cancer (5) HTN (hypertension) Assessment/Plan improivng continue antibioitcs awaiting [facility] possible embolization of pulmonary artery Subjective ROS Limited/Unobtainable: No Interval Events: coughing up less Allergies: Coded Allergies: IBUPROFEN (Verified Allergy, Unknown, 08/23/16) Objective Last 24 Hour Vital Signs Date Time Temp Pulse Resp B/P Pulse Ox O2 Delivery O2 Flow Rate FiO2 08/25/16 11:25 97.0 84 18 102/52 95 Room Air 08/25/16 08:40 83 118/54 08/25/16 08:27 98.4 83 18 118/54 97 Room Air 08/25/16 04:00 98.2 87 20 112/54 96 Room Air 08/25/16 04:00 88 08/25/16 00:00 84 08/25/16 00:00 97.3 83 20 124/89 96 Room Air 08/24/16 21:23 70 17 Room Air 08/24/16 20:00 98.2 76 18 99/56 98 Room Air 08/24/16 20:00 75 08/24/16 17:47 79 104/42 08/24/16 16:00 79 08/24/16 15:22 96.2 79 18 104/42 95 Room Air 08/24/16 12:00 76 Intake and Output 08/24/16 08/25/16 19:00 07:00 Intake Total 917.416 ml 260 ml Output Total 400 ml Balance 917.416 ml -140 ml Intake Oral 440 ml 150 ml IV Total 477.416 ml 110 ml Output Urine Total 400 ml # Voids 2 2 General Appearance: WD/WN HEENT: normocephalic, atraumatic Respiratory/Chest: chest wall non-tender, lungs clear Cardiovascular: normal peripheral pulses, normal rate Abdomen: normal bowel sounds, soft, non tender Extremities: no cyanosis Skin: no lesions Laboratory Tests 08/25/16 02:30: Vancomycin Level Trough 14.0H Current Medications Medications (Trade) Dose Ordered Sig/Mariola Route PRN Reason Start Time Stop Time Status Last Admin Dose Admin Acetaminophen (Tylenol) 650 mg Q6H PRN ORAL Mild Pain/Temp > 100.5 08/23/16 00:15 09/22/16 00:14 Albuterol/ Ipratropium (DuoNeb 0.5-3(2.5)mg/3ml) 3 ml Q6H PRN HHN Shortness of Breath 08/23/16 11:45 08/28/16 11:44 Atropine Sulfate (Atropine Opth Verito) 1 drop Q2H PRN SL excessive secretions 08/23/16 13:00 09/22/16 12:59 Baclofen (Lioresal) 10 mg PRN PRN ORAL Muscle Spasm 08/23/16 06:00 09/22/16 05:59 Cefepime HCl/ Dextrose (Maxipime/D5W) 55 ml @ 110 mls/hr Q12HR IVPB 08/24/16 15:00 08/31/16 14:59 08/25/16 08:39 Diphenhydramine HCl (Benadryl) 12.5 mg Q4H PRN ORAL Itching/Pruritis 08/23/16 11:45 09/22/16 11:44 Diphenhydramine HCl (Benadryl) 25 mg HSPRN PRN ORAL Insomnia 08/23/16 06:00 09/22/16 05:59 Docusate Sodium (Colace) 100 mg DAILY PRN ORAL Constipation 08/23/16 06:00 09/22/16 05:59 Dronabinol 2.5 mg 2.5 mg BID ORAL 08/23/16 21:00 09/22/16 20:59 08/25/16 08:40 Ferrous Sulfate (Feosol) 325 mg DAILY ORAL 08/23/16 09:00 09/22/16 08:59 08/25/16 08:40 Fexofenadine HCl (Scarlett) 60 mg TWICE A DAY ORAL 08/23/16 09:00 09/22/16 08:59 08/25/16 08:40 Hydrochlorothiazide (Hydrodiuril) 12.5 mg DAILY ORAL 08/23/16 09:00 09/22/16 08:59 08/25/16 08:40 Hydromorphone HCl (Dilaudid) 2 mg Q3H PRN IV Severe Pain (Pain Scale 7-10) 08/23/16 11:45 08/30/16 11:44 08/24/16 15:20 Metoprolol Succinate (Toprol XL) 25 mg TWICE A DAY ORAL 08/23/16 09:00 09/22/16 08:59 08/25/16 08:40 Metronidazole (Flagyl) 500 mg Q8HR ORAL 08/23/16 06:00 08/30/16 05:59 08/25/16 06:52 Ondansetron HCl (Zofran) 4 mg Q6H PRN IVP Nausea & Vomiting 08/23/16 11:45 09/22/16 11:44 Oxycodone HCl (OxyCONTIN) 10 mg EVERY 12 HOURS ORAL 08/23/16 21:00 08/30/16 20:59 08/25/16 08:40 Pantoprazole (Protonix) 40 mg DAILY ORAL 08/24/16 09:00 09/23/16 08:59 08/25/16 08:40 Promethazine HCl/ Codeine (Phenergan with Codeine) 5 ml Q4H PRN ORAL For Cough 08/23/16 01:30 09/22/16 01:29 08/25/16 02:47 Quetiapine Fumarate (SEROquel) 400 mg Q24HRS ORAL 08/23/16 21:00 09/22/16 20:59 08/24/16 21:42 Sertraline HCl (Zoloft) 50 mg DAILY ORAL 08/23/16 09:00 09/22/16 08:59 08/25/16 08:40 Vancomycin HCl 1 ea 1 ea DAILY PRN MISC Per rx protocol 08/23/16 11:45 09/22/16 11:44 Vancomycin HCl/ Dextrose (Vancomycin/D5W) 275 ml @ 183.708 mls/hr Q12HR@0300,1500 IVPB 08/24/16 03:00 08/29/16 02:59 08/25/16 03:37 JUSTIN LANG Aug 25, 2016 11:32
[2016-08-25 11:46] LABS: OTHERS PATHOLOGIST COMMENT
--- NOTE | 2016-08-25 17:05 | Internal Med Progress Note ---
Subjective Date of Service: Aug 25, 2016 Physician Name Chen,Chelly Attending Physician Kvng Alba MD Current Medications Medications (Trade) Dose Ordered Sig/Mariola Route PRN Reason Start Time Stop Time Status Last Admin Dose Admin Acetaminophen (Tylenol) 650 mg Q6H PRN ORAL Mild Pain/Temp > 100.5 08/23/16 00:15 09/22/16 00:14 Albuterol/ Ipratropium (DuoNeb 0.5-3(2.5)mg/3ml) 3 ml Q6H PRN HHN Shortness of Breath 08/23/16 11:45 08/28/16 11:44 Atropine Sulfate (Atropine Opth Verito) 1 drop Q2H PRN SL excessive secretions 08/23/16 13:00 09/22/16 12:59 Baclofen (Lioresal) 10 mg PRN PRN ORAL Muscle Spasm 08/23/16 06:00 09/22/16 05:59 Cefepime HCl/ Dextrose (Maxipime/D5W) 55 ml @ 110 mls/hr Q12HR IVPB 08/24/16 15:00 08/31/16 14:59 08/25/16 08:39 Diphenhydramine HCl (Benadryl) 12.5 mg Q4H PRN ORAL Itching/Pruritis 08/23/16 11:45 09/22/16 11:44 Diphenhydramine HCl (Benadryl) 25 mg HSPRN PRN ORAL Insomnia 08/23/16 06:00 09/22/16 05:59 Docusate Sodium (Colace) 100 mg DAILY PRN ORAL Constipation 08/23/16 06:00 09/22/16 05:59 Dronabinol 2.5 mg 2.5 mg BID ORAL 08/23/16 21:00 09/22/16 20:59 08/25/16 08:40 Ferrous Sulfate (Feosol) 325 mg DAILY ORAL 08/23/16 09:00 09/22/16 08:59 08/25/16 08:40 Fexofenadine HCl (Scarlett) 60 mg TWICE A DAY ORAL 08/23/16 09:00 09/22/16 08:59 08/25/16 08:40 Hydrochlorothiazide (Hydrodiuril) 12.5 mg DAILY ORAL 08/23/16 09:00 09/22/16 08:59 08/25/16 08:40 Hydromorphone HCl (Dilaudid) 2 mg Q3H PRN IV Severe Pain (Pain Scale 7-10) 08/23/16 11:45 08/30/16 11:44 08/25/16 13:12 Metoprolol Succinate (Toprol XL) 25 mg TWICE A DAY ORAL 08/23/16 09:00 09/22/16 08:59 08/25/16 08:40 Metronidazole (Flagyl) 500 mg Q8HR ORAL 08/23/16 06:00 08/30/16 05:59 08/25/16 13:11 Ondansetron HCl (Zofran) 4 mg Q6H PRN IVP Nausea & Vomiting 08/23/16 11:45 09/22/16 11:44 Oxycodone HCl (OxyCONTIN) 10 mg EVERY 12 HOURS ORAL 08/23/16 21:00 08/30/16 20:59 08/25/16 08:40 Pantoprazole (Protonix) 40 mg DAILY ORAL 08/24/16 09:00 09/23/16 08:59 08/25/16 08:40 Promethazine HCl/ Codeine (Phenergan with Codeine) 5 ml Q4H PRN ORAL For Cough 08/23/16 01:30 09/22/16 01:29 08/25/16 02:47 Quetiapine Fumarate (SEROquel) 400 mg Q24HRS ORAL 08/23/16 21:00 09/22/16 20:59 08/24/16 21:42 Sertraline HCl (Zoloft) 50 mg DAILY ORAL 08/23/16 09:00 09/22/16 08:59 08/25/16 08:40 Vancomycin HCl 1 ea 1 ea DAILY PRN MISC Per rx protocol 08/23/16 11:45 09/22/16 11:44 Vancomycin HCl/ Dextrose (Vancomycin/D5W) 275 ml @ 183.708 mls/hr Q12HR@0300,1500 IVPB 08/24/16 03:00 08/29/16 02:59 08/25/16 14:37 Allergies: Coded Allergies: IBUPROFEN (Verified Allergy, Unknown, 08/23/16) ROS Limited/Unobtainable: No Constitutional: Reports: no symptoms HEENT: Reports: no symptoms Cardiovascular: Reports: no symptoms Respiratory: Reports: other - hemoptysis Gastrointestinal/Abdominal: Reports: no symptoms Genitourinary: Reports: no symptoms Neurologic/Psychiatric: Reports: no symptoms Subjective 66 YO F admitted with hemoptysis. Now pneumonia and RUL mass. Cover for Int Magen-Dr Alba Objective Last Vital Signs Date Time Temp Pulse Resp B/P Pulse Ox O2 Delivery O2 Flow Rate FiO2 08/25/16 16:02 98.0 76 18 121/51 96 Room Air Laboratory Tests Test 08/25/16 02:30 Vancomycin Level Trough 14.0 ug/mL (5.0-12.0) H Intake and Output 08/24/16 08/25/16 19:00 07:00 Intake Total 917.416 ml 260 ml Output Total 400 ml Balance 917.416 ml -140 ml Intake Oral 440 ml 150 ml IV Total 477.416 ml 110 ml Output Urine Total 400 ml # Voids 2 2 Objective General: alert, cooperative, no distress, appears stated age Head: normocephalic, without obvious abnormality, atraumatic Eyes: conjunctivae/corneas clear. PERRL, EOM's intact Throat: lips, mucosa, and tongue normal. MMM Neck: supple, symmetrical, trachea midline, and no JVD Lungs: Decreased breath sounds RUL; otherwise, clear to auscultation bilaterally Heart: regular rate and rhythm, S1, S2 normal, no murmur, click, rub or gallop Abdomen: soft, non-tender, non-distended, bowel sounds normal; no masses or organomegaly Extremities: extremities normal, atraumatic, no cyanosis or edema Pulses: 2+ and symmetric Skin: skin color, texture, turgor normal; no rashes or lesions Neurologic: grossly normal, no focal deficits Assessment/Plan Problem List: (1) Leukocytosis (2) Diabetes mellitus type II, uncontrolled Assessment & Plan: Cont novolog sliding scale. (3) Hypercholesteremia (4) Coronary artery disease (5) Depression (6) Breast cancer (7) Pneumonia (8) Hemoptysis (9) Lung cancer Assessment & Plan: RUL. ?metastatic breast cancer? See onc note. (10) Sepsis (11) HTN (hypertension) (12) Anemia due to blood loss Assessment & Plan: S/P transfusion 1 unit PRBC. CHELLY CHEN Aug 25, 2016 17:05
[2016-08-25] MEDS ORDERED: DuoNeb 0.5-3(2.5)mg/3ml neb HHN PRN (17:45)
[2016-08-25] MEDS ORDERED: DiphenhydrAMINE 25mg/10ml Elixir ORAL PRN (18:00)
--- NOTE | 2016-08-25 18:33 | General Progress Note ---
Assessment/Plan Assessment/Plan ASSESSMENT: # 5.5 cm area of low attenuation within cephalad portion of mass likely represents necrosis. Small gas bubbles at the periphery may be part of the chronic process and/or represent pathologic communication with bronchus. 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 # Leukocytosis. # Right lower lobe pneumonia. # Diabetes type 2. # Hypertension. TREATMENT: - Given patient has refused chemotherapy/treatment before, needs tissue diagnosis or conservative care as per pt preference - Antibiotics as per ID/Pulm team for PNA - Appreciate pulmonary recommendations - Prognosis remains poor - Amicar for hemoptysis agree - Consider XRT for SVC compression though again she wants only conservative measures - Anemia w/u ordered - Continue ferrous sulfate and PPI - Appreciate consultation Subjective Constitutional: Reports: no symptoms HEENT: Reports: no symptoms Cardiovascular: Reports: no symptoms Respiratory: Reports: cough Gastrointestinal/Abdominal: Reports: no symptoms Genitourinary: Reports: no symptoms Neurologic/Psychiatric: Reports: no symptoms Endocrine: Reports: no symptoms Hematologic/Lymphatic: Reports: anemia Allergies: Coded Allergies: IBUPROFEN (Verified Allergy, Unknown, 08/23/16) Subjective hemoptysis with blood streaked sputum, no pain reported Objective Last 24 Hour Vital Signs Date Time Temp Pulse Resp B/P Pulse Ox O2 Delivery O2 Flow Rate FiO2 08/25/16 17:04 98.2 75 19 119/51 100 Room Air 08/25/16 16:02 98.0 76 18 121/51 96 Room Air 08/25/16 16:00 76 08/25/16 12:00 85 08/25/16 11:25 97.0 84 18 102/52 95 Room Air 08/25/16 08:40 83 118/54 08/25/16 08:27 98.4 83 18 118/54 97 Room Air 08/25/16 08:00 85 08/25/16 06:57 74 20 Room Air 08/25/16 04:00 98.2 87 20 112/54 96 Room Air 08/25/16 04:00 88 08/25/16 00:00 84 08/25/16 00:00 97.3 83 20 124/89 96 Room Air 08/24/16 21:23 70 17 Room Air 08/24/16 20:00 98.2 76 18 99/56 98 Room Air 08/24/16 20:00 75 Intake and Output 08/24/16 08/25/16 19:00 07:00 Intake Total 917.416 ml 260 ml Output Total 400 ml Balance 917.416 ml -140 ml Intake Oral 440 ml 150 ml IV Total 477.416 ml 110 ml Output Urine Total 400 ml # Voids 2 2 Laboratory Tests 08/25/16 02:30: Vancomycin Level Trough 14.0H Height (Feet): 5 Height (Inches): 7.00 Weight (Pounds): 137 General Appearance: WD/WN EENT: PERRL/EOMI Neck: non-tender Cardiovascular: normal peripheral pulses Respiratory/Chest: chest wall non-tender Abdomen: normal bowel sounds Extremities: normal range of motion Edema: no edema noted Leg (L), no edema noted Leg (R), no edema noted Pedal (L) , no edema noted Pedal (R), no edema noted 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
[2016-08-25] MEDS: QUEtiapine 200mg tab ORAL SCH (20:40)
[2016-08-25] MEDS: NovoLOG Insulin Flexpen SUBQ SCH (22:21)
[2016-08-26] VITALS: BP 103/49
[2016-08-26] MEDS: Vancomycin 750 MG in D5W 275 ML IVPB SCH ×2 (02:31→15:57)
[2016-08-26 04:00] VITALS: BP 110/56
[2016-08-26] MEDS: metroNIDAZOLE 500mg tab ORAL SCH ×3 (05:08→21:00)
[2016-08-26] MEDS: NovoLOG Insulin Flexpen SUBQ SCH ×4 (05:55→20:56)
[2016-08-26] MEDS: Promethazine/Codeine 5ml UD ORAL PRN ×2 (06:02→13:51)
[2016-08-26 07:03] LABS: MEAN CORPUSCULAR HEMOGLOBIN 26.3 PG (27.0-31.0); MEAN CORPUSCULAR HGB CONC 31.7 G/DL (32.0-36.0); MEAN CORPUSCULAR VOLUME 83 FL (80-99); MEAN PLATELET VOLUME 5.7 FL (6.5-10.1); PLATELET COUNT 402 K/UL (150-450); RED BLOOD COUNT 2.83 M/UL (4.20-5.40); RED CELL DISTRIBUTION WIDTH 16.6 % (11.6-14.8); WHITE BLOOD COUNT 16.4 K/UL (4.8-10.8)
[2016-08-26 07:11] LABS: INR 1.3 (0.9-1.1); PROTHROMBIN TIME 12.8 SEC (9.30-11.50)
[2016-08-26 07:23] LABS: ALANINE AMINOTRANSFERASE 12 U/L (3-33); ALBUMIN/GLOBULIN RATIO 0.5 (1.0-2.7); ANION GAP 15 (5-15); ASPARTATE AMINO TRANSFERASE 11 U/L (5-40); CALCIUM 9.8 mg/dL (8.6-10.2); CARBON DIOXIDE 22 mEQ/L (20-30); CHLORIDE 94 mEQ/L (98-107); CREATININE 0.6 mg/dL (0.5-0.9); GLOMERULAR FILTRATION RATE > 60 mL/min (>60); HEMOLYSIS 0; MAGNESIUM 1.7 mg/dL (1.7-2.5); PHOSPHORUS 2.9 mg/dL (2.5-4.8); POTASSIUM 3.6 mEQ/L (3.4-4.9); SODIUM 131 mEQ/L (135-145); TOTAL PROTEIN 6.4 g/dL (6.6-8.7)
[2016-08-26 08:17] VITALS: BP 113/60
[2016-08-26] MEDS: Cefepime HCl 1 GM in D5W 55 ML IVPB SCH ×2 (08:44→20:26)
[2016-08-26] MEDS: Sertraline 50mg tab ORAL SCH (08:46)
[2016-08-26] MEDS: oxyCONTIN 10mg tab ORAL SCH ×2 (08:46→20:50)
[2016-08-26] MEDS: Dronabinol 2.5mg Cap ORAL SCH ×2 (08:46→17:37)
[2016-08-26] MEDS ORDERED: Docusate 100mg tablet ORAL PRN (09:00)
[2016-08-26 10:01] LABS: LYMPHOCYTES % (MANUAL) 6 % (20-45); NEUTROPHILS % (MANUAL) 86 % (45-75); TOTAL CELLS COUNTED 100
[2016-08-26 10:02] LABS: ANISOCYTOSIS 1+; BAND NEUTROPHILS % (MANUAL) 0 % (0-8); BASOPHILS % (MANUAL) 0 % (0-2); EOSINOPHILS % (MANUAL) 0 % (0-3); HYPOCHROMASIA 1+; PLATELET ESTIMATE ADEQUATE; PLATELET MORPHOLOGY NORMAL
[2016-08-26 12:30] VITALS: BP 111/58
[2016-08-26 15:59] VITALS: BP 148/62
--- NOTE | 2016-08-26 17:05 | Internal Med Progress Note ---
Subjective Date of Service: Aug 26, 2016 Physician Name ChenChelly Attending Physician Kvng Alba MD Current Medications Medications (Trade) Dose Ordered Sig/Mariola Route PRN Reason Start Time Stop Time Status Last Admin Dose Admin Acetaminophen (Tylenol) 650 mg Q6H PRN ORAL Mild Pain/Temp > 100.5 08/25/16 18:15 09/24/16 18:14 08/26/16 05:17 Albuterol/ Ipratropium (DuoNeb 0.5-3(2.5)mg/3ml) 3 ml Q6H PRN HHN Shortness of Breath 08/25/16 17:45 08/30/16 17:44 Atropine Sulfate (Atropine Opth Verito) 1 drop Q2H PRN SL excessive secretions 08/25/16 19:00 09/24/16 18:59 Baclofen (Lioresal) 10 mg TID PRN ORAL Muscle Spasm 08/26/16 06:00 09/25/16 05:59 08/26/16 13:51 Cefepime HCl 1 gm/ Dextrose 55 ml @ 110 mls/hr Q12HR IVPB 08/25/16 21:00 09/01/16 20:59 08/26/16 08:44 Dextrose STAT PRN IV Hypoglycemia 08/25/16 17:00 09/24/16 16:59 Diphenhydramine HCl (Benadryl) 12.5 mg Q4H PRN ORAL Itching/Pruritis 08/25/16 18:00 09/24/16 17:59 Diphenhydramine HCl (Benadryl) 25 mg HSPRN PRN ORAL Insomnia 08/25/16 18:00 09/24/16 17:59 Docusate Sodium (Colace) 100 mg DAILYPRN PRN ORAL Constipation 08/26/16 09:00 09/25/16 08:59 Dronabinol (Marinol) 2.5 mg BID ORAL 08/25/16 18:00 09/24/16 17:59 08/26/16 08:46 Ferrous Sulfate (Feosol) 325 mg DAILY ORAL 08/26/16 09:00 09/25/16 08:59 08/26/16 08:45 Fexofenadine HCl (Scarlett) 60 mg TWICE A DAY ORAL 08/25/16 18:00 09/24/16 17:59 08/26/16 08:46 Hydrochlorothiazide (Hydrodiuril) 12.5 mg DAILY ORAL 08/26/16 09:00 09/25/16 08:59 08/26/16 08:45 Hydromorphone HCl (Dilaudid) 2 mg Q3H PRN IV Severe Pain (Pain Scale 7-10) 08/25/16 17:45 09/01/16 17:44 08/26/16 16:01 Insulin Aspart (NovoLOG) BEFORE MEALS AND HS SUBQ 08/25/16 21:00 09/24/16 20:59 08/26/16 05:55 Metoprolol Succinate (Toprol XL) 25 mg TWICE A DAY ORAL 08/25/16 18:00 09/24/16 17:59 08/26/16 08:45 Metronidazole (Flagyl) 500 mg Q8HR ORAL 08/25/16 22:00 09/01/16 21:59 08/26/16 13:51 Ondansetron HCl (Zofran) 4 mg Q6H PRN IVP Nausea & Vomiting 08/25/16 17:45 09/24/16 17:44 Oxycodone HCl (OxyCONTIN) 10 mg EVERY 12 HOURS ORAL 08/25/16 21:00 09/01/16 20:59 08/26/16 08:46 Pantoprazole (Protonix) 40 mg DAILY ORAL 08/26/16 09:00 09/25/16 08:59 08/26/16 08:45 Promethazine HCl/ Codeine (Phenergan with Codeine) 5 ml Q4H PRN ORAL For Cough 08/25/16 17:30 09/24/16 17:29 08/26/16 13:51 Quetiapine Fumarate (SEROquel) 400 mg Q24HRS ORAL 08/25/16 21:00 09/24/16 20:59 08/25/16 20:40 Sertraline HCl (Zoloft) 50 mg DAILY ORAL 08/26/16 09:00 09/25/16 08:59 08/26/16 08:46 Vancomycin HCl (Vanco rx to dose) 1 ea DAILY PRN MISC Per rx protocol 08/26/16 09:00 09/25/16 08:59 Vancomycin HCl/ Dextrose (Vancomycin/D5W) 275 ml @ 183.708 mls/hr Q12HR@0300,1500 IVPB 08/26/16 03:00 08/31/16 02:59 08/26/16 15:57 Allergies: Coded Allergies: IBUPROFEN (Verified Allergy, Unknown, 08/23/16) ROS Limited/Unobtainable: No Constitutional: Reports: no symptoms HEENT: Reports: no symptoms Cardiovascular: Reports: no symptoms Respiratory: Reports: other - hemoptysis, shortness of breath Gastrointestinal/Abdominal: Reports: no symptoms Genitourinary: Reports: no symptoms Neurologic/Psychiatric: Reports: no symptoms Subjective 66 YO F admitted with hemoptysis. Now pneumonia and RUL mass. Cover for Int Magen-Dr Alba Objective Last Vital Signs Date Time Temp Pulse Resp B/P Pulse Ox O2 Delivery O2 Flow Rate FiO2 08/26/16 15:59 97.0 88 19 148/62 93 Room Air 08/26/16 08:35 21 Laboratory Tests Test 08/26/16 06:05 White Blood Count 16.4 K/UL (4.8-10.8) H Red Blood Count 2.83 M/UL (4.20-5.40) L Hemoglobin 7.4 G/DL (12.0-16.0) L Hematocrit 23.5 % (37.0-47.0) L Mean Corpuscular Volume 83 FL (80-99) Mean Corpuscular Hemoglobin 26.3 PG (27.0-31.0) L Mean Corpuscular Hemoglobin Concent 31.7 G/DL (32.0-36.0) L Red Cell Distribution Width 16.6 % (11.6-14.8) H Platelet Count 402 K/UL (150-450) Mean Platelet Volume 5.7 FL (6.5-10.1) L Neutrophils (%) (Auto) % (45.0-75.0) Lymphocytes (%) (Auto) % (20.0-45.0) Monocytes (%) (Auto) % (1.0-10.0) Eosinophils (%) (Auto) % (0.0-3.0) Basophils (%) (Auto) % (0.0-2.0) Differential Total Cells Counted 100 Neutrophils % (Manual) 86 % (45-75) H Lymphocytes % (Manual) 6 % (20-45) L Monocytes % (Manual) 8 % (1-10) Eosinophils % (Manual) 0 % (0-3) Basophils % (Manual) 0 % (0-2) Band Neutrophils 0 % (0-8) Platelet Estimate Adequate Platelet Morphology Normal Hypochromasia 1+ Anisocytosis 1+ Prothrombin Time 12.8 SEC (9.30-11.50) H Prothromb Time International Ratio 1.3 (0.9-1.1) H Activated Partial Thromboplast Time 31 SEC (23-33) Sodium Level 131 mEQ/L (135-145) L Potassium Level 3.6 mEQ/L (3.4-4.9) Chloride Level 94 mEQ/L (98-107) L Carbon Dioxide Level 22 mEQ/L (20-30) Anion Gap 15 (5-15) Blood Urea Nitrogen 10 mg/dL (7-23) Creatinine 0.6 mg/dL (0.5-0.9) Estimat Glomerular Filtration Rate > 60 mL/min (>60) Glucose Level 138 mg/dL (74-106) H Hemoglobin A1c 5.5 % (< 6.0) Calcium Level 9.8 mg/dL (8.6-10.2) Phosphorus Level 2.9 mg/dL (2.5-4.8) Magnesium Level 1.7 mg/dL (1.7-2.5) Total Bilirubin 0.5 mg/dL (0.0-1.2) Aspartate Amino Transf (AST/SGOT) 11 U/L (5-40) Alanine Aminotransferase (ALT/SGPT) 12 U/L (3-33) Alkaline Phosphatase 234 U/L (35-104) H Total Protein 6.4 g/dL (6.6-8.7) L Albumin 2.3 g/dL (3.5-5.2) L Globulin 4.1 g/dL Albumin/Globulin Ratio 0.5 (1.0-2.7) L Intake and Output 08/25/16 08/26/16 19:00 07:00 Intake Total 717.416 ml 360 ml Output Total 350 ml Balance 367.416 ml 360 ml Intake Oral 240 ml 360 ml IV Total 477.416 ml Output Urine Total 350 ml # Voids 3 # Bowel Movements 1 Objective General: alert, cooperative, no distress, appears stated age Head: normocephalic, without obvious abnormality, atraumatic Eyes: conjunctivae/corneas clear. PERRL, EOM's intact Throat: lips, mucosa, and tongue normal. MMM Neck: supple, symmetrical, trachea midline, and no JVD Lungs: Decreased breath sounds RUL; otherwise, clear to auscultation bilaterally Heart: regular rate and rhythm, S1, S2 normal, no murmur, click, rub or gallop Abdomen: soft, non-tender, non-distended, bowel sounds normal; no masses or organomegaly Extremities: extremities normal, atraumatic, no cyanosis or edema Pulses: 2+ and symmetric Skin: skin color, texture, turgor normal; no rashes or lesions Neurologic: grossly normal, no focal deficits Assessment/Plan Problem List: (1) Leukocytosis (2) Diabetes mellitus type II, uncontrolled Assessment & Plan: Cont novolog sliding scale. (3) Hypercholesteremia (4) Coronary artery disease (5) Depression (6) Breast cancer (7) Pneumonia (8) Hemoptysis (9) Lung cancer Assessment & Plan: RUL. ?metastatic breast cancer? See onc note. (10) Sepsis (11) HTN (hypertension) (12) Anemia due to blood loss Assessment & Plan: S/P transfusion 1 unit PRBC. Status: progressing CHELLY CHEN Aug 26, 2016 17:04
[2016-08-26 20:00] VITALS: BP 101/49
[2016-08-26] MEDS: QUEtiapine 200mg tab ORAL SCH (20:50)
--- NOTE | 2016-08-26 23:20 | General Progress Note ---
Assessment/Plan Assessment/Plan ASSESSMENT: # 5.5 cm area of low attenuation within cephalad portion of mass likely represents necrosis. Small gas bubbles at the periphery may be part of the chronic process and/or represent pathologic communication with bronchus. 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 # Leukocytosis. # Right lower lobe pneumonia. # Diabetes type 2. # Hypertension. TREATMENT: - Given patient has refused chemotherapy/treatment before, needs tissue diagnosis or conservative care as per pt preference - Antibiotics as per ID/Pulm team for PNA - Appreciate pulmonary recommendations - Prognosis remains poor - Amicar for hemoptysis agree - Consider XRT for SVC compression though again she wants only conservative measures - Anemia w/u ordered-pending - Continue ferrous sulfate and PPI - Appreciate consultation Subjective Constitutional: Reports: no symptoms HEENT: Reports: no symptoms Cardiovascular: Reports: no symptoms Respiratory: Reports: no symptoms Gastrointestinal/Abdominal: Reports: no symptoms Genitourinary: Reports: no symptoms Neurologic/Psychiatric: Reports: no symptoms Endocrine: Reports: no symptoms Hematologic/Lymphatic: Reports: no symptoms Allergies: Coded Allergies: IBUPROFEN (Verified Allergy, Unknown, 08/23/16) Subjective NAD, afebrile, no bleeding Objective Last 24 Hour Vital Signs Date Time Temp Pulse Resp B/P Pulse Ox O2 Delivery O2 Flow Rate FiO2 08/26/16 20:26 97 18 Room Air 21 08/26/16 20:00 97.9 74 21 101/49 96 Room Air 08/26/16 17:37 87 106/67 08/26/16 15:59 97.0 88 19 148/62 93 Room Air 08/26/16 14:01 97.0 08/26/16 12:30 97.8 71 20 111/58 98 Room Air 08/26/16 08:45 69 113/60 08/26/16 08:35 72 18 Room Air 21 08/26/16 08:17 96.9 69 19 113/60 97 Room Air 08/26/16 06:16 97.1 08/26/16 04:00 97.1 79 18 110/56 96 Room Air 08/26/16 00:00 97.3 79 18 103/49 92 Room Air Intake and Output 08/25/16 08/26/16 19:00 07:00 Intake Total 717.416 ml 360 ml Output Total 350 ml Balance 367.416 ml 360 ml Intake Oral 240 ml 360 ml IV Total 477.416 ml Output Urine Total 350 ml # Voids 3 # Bowel Movements 1 Laboratory Tests 08/26/16 06:05: White Blood Count 16.4H, Red Blood Count 2.83L, Hemoglobin 7.4L, Hematocrit 23.5L, Mean Corpuscular Volume 83, Mean Corpuscular Hemoglobin 26.3L, Mean Corpuscular Hemoglobin Concent 31.7L, Red Cell Distribution Width 16.6H, Platelet Count 402, Mean Platelet Volume 5.7L, Neutrophils (%) (Auto) , Lymphocytes (%) (Auto) , Monocytes (%) (Auto) , Eosinophils (%) (Auto) , Basophils (%) (Auto) , Differential Total Cells Counted 100, Neutrophils % ( Manual) 86H, Lymphocytes % (Manual) 6L, Monocytes % (Manual) 8, Eosinophils % ( Manual) 0, Basophils % (Manual) 0, Band Neutrophils 0, Platelet Estimate Adequate, Platelet Morphology Normal, Hypochromasia 1+, Anisocytosis 1+, Prothrombin Time 12.8H, Prothromb Time International Ratio 1.3H, Activated Partial Thromboplast Time 31, Sodium Level 131L, Potassium Level 3.6, Chloride Level 94L, Carbon Dioxide Level 22, Anion Gap 15, Blood Urea Nitrogen 10, Creatinine 0.6, Estimat Glomerular Filtration Rate > 60, Glucose Level 138H, Hemoglobin A1c 5.5, Calcium Level 9.8, Phosphorus Level 2.9, Magnesium Level 1.7 , Total Bilirubin 0.5, Aspartate Amino Transf (AST/SGOT) 11, Alanine Aminotransferase (ALT/SGPT) 12, Alkaline Phosphatase 234H, Total Protein 6.4L, Albumin 2.3L, Globulin 4.1, Albumin/Globulin Ratio 0.5L Height (Feet): 5 Height (Inches): 7.00 Weight (Pounds): 137 General Appearance: WD/WN EENT: PERRL/EOMI Neck: non-tender Cardiovascular: normal peripheral pulses Respiratory/Chest: chest wall non-tender Abdomen: normal bowel sounds Edema: no edema noted Leg (L), no edema noted Leg (R), no edema noted Pedal (L) , no edema noted Pedal (R), no edema noted Generalized Skin: warm/dry Ted Chen Aug 26, 2016 23:20
--- NOTE | 2016-08-26 23:26 | Pulmonology Progress Note ---
Assessment/Plan Problems: (1) Hemoptysis (2) Sepsis (3) Pneumonia (4) Lung cancer (5) HTN (hypertension) Assessment/Plan f/u cbc continue abx d/w radiologist and dr rivas check sputum Subjective Allergies: Coded Allergies: IBUPROFEN (Verified Allergy, Unknown, 08/23/16) Objective Last 24 Hour Vital Signs Date Time Temp Pulse Resp B/P Pulse Ox O2 Delivery O2 Flow Rate FiO2 08/26/16 20:26 97 18 Room Air 21 08/26/16 20:00 97.9 74 21 101/49 96 Room Air 08/26/16 17:37 87 106/67 08/26/16 15:59 97.0 88 19 148/62 93 Room Air 08/26/16 14:01 97.0 08/26/16 12:30 97.8 71 20 111/58 98 Room Air 08/26/16 08:45 69 113/60 08/26/16 08:35 72 18 Room Air 21 08/26/16 08:17 96.9 69 19 113/60 97 Room Air 08/26/16 06:16 97.1 08/26/16 04:00 97.1 79 18 110/56 96 Room Air 08/26/16 00:00 97.3 79 18 103/49 92 Room Air Intake and Output 08/25/16 08/26/16 19:00 07:00 Intake Total 717.416 ml 360 ml Output Total 350 ml Balance 367.416 ml 360 ml Intake Oral 240 ml 360 ml IV Total 477.416 ml Output Urine Total 350 ml # Voids 3 # Bowel Movements 1 Laboratory Tests 08/26/16 06:05: White Blood Count 16.4H, Red Blood Count 2.83L, Hemoglobin 7.4L, Hematocrit 23.5L, Mean Corpuscular Volume 83, Mean Corpuscular Hemoglobin 26.3L, Mean Corpuscular Hemoglobin Concent 31.7L, Red Cell Distribution Width 16.6H, Platelet Count 402, Mean Platelet Volume 5.7L, Neutrophils (%) (Auto) , Lymphocytes (%) (Auto) , Monocytes (%) (Auto) , Eosinophils (%) (Auto) , Basophils (%) (Auto) , Differential Total Cells Counted 100, Neutrophils % ( Manual) 86H, Lymphocytes % (Manual) 6L, Monocytes % (Manual) 8, Eosinophils % ( Manual) 0, Basophils % (Manual) 0, Band Neutrophils 0, Platelet Estimate Adequate, Platelet Morphology Normal, Hypochromasia 1+, Anisocytosis 1+, Prothrombin Time 12.8H, Prothromb Time International Ratio 1.3H, Activated Partial Thromboplast Time 31, Sodium Level 131L, Potassium Level 3.6, Chloride Level 94L, Carbon Dioxide Level 22, Anion Gap 15, Blood Urea Nitrogen 10, Creatinine 0.6, Estimat Glomerular Filtration Rate > 60, Glucose Level 138H, Hemoglobin A1c 5.5, Calcium Level 9.8, Phosphorus Level 2.9, Magnesium Level 1.7 , Total Bilirubin 0.5, Aspartate Amino Transf (AST/SGOT) 11, Alanine Aminotransferase (ALT/SGPT) 12, Alkaline Phosphatase 234H, Total Protein 6.4L, Albumin 2.3L, Globulin 4.1, Albumin/Globulin Ratio 0.5L Current Medications Medications (Trade) Dose Ordered Sig/Mariola Route PRN Reason Start Time Stop Time Status Last Admin Dose Admin Acetaminophen (Tylenol) 650 mg Q6H PRN ORAL Mild Pain/Temp > 100.5 08/25/16 18:15 09/24/16 18:14 08/26/16 05:17 Albuterol/ Ipratropium (DuoNeb 0.5-3(2.5)mg/3ml) 3 ml Q6H PRN HHN Shortness of Breath 08/25/16 17:45 08/30/16 17:44 Atropine Sulfate (Atropine Opth Verito) 1 drop Q2H PRN SL excessive secretions 08/25/16 19:00 09/24/16 18:59 Baclofen (Lioresal) 10 mg TID PRN ORAL Muscle Spasm 08/26/16 06:00 09/25/16 05:59 08/26/16 13:51 Cefepime HCl 1 gm/ Dextrose 55 ml @ 110 mls/hr Q12HR IVPB 08/25/16 21:00 09/01/16 20:59 08/26/16 20:26 Dextrose STAT PRN IV Hypoglycemia 08/25/16 17:00 09/24/16 16:59 Diphenhydramine HCl (Benadryl) 12.5 mg Q4H PRN ORAL Itching/Pruritis 08/25/16 18:00 5/22/17 17:59 Diphenhydramine HCl (Benadryl) 25 mg HSPRN PRN ORAL Insomnia 08/25/16 18:00 09/24/16 17:59 Docusate Sodium (Colace) 100 mg DAILYPRN PRN ORAL Constipation 08/26/16 09:00 09/25/16 08:59 Dronabinol (Marinol) 2.5 mg BID ORAL 08/25/16 18:00 09/24/16 17:59 08/26/16 17:37 Ferrous Sulfate (Feosol) 325 mg DAILY ORAL 08/26/16 09:00 09/25/16 08:59 08/26/16 08:45 Fexofenadine HCl (Scarlett) 60 mg TWICE A DAY ORAL 08/25/16 18:00 09/24/16 17:59 08/26/16 17:37 Hydrochlorothiazide (Hydrodiuril) 12.5 mg DAILY ORAL 08/26/16 09:00 09/25/16 08:59 08/26/16 08:45 Hydromorphone HCl (Dilaudid) 2 mg Q3H PRN IV Severe Pain (Pain Scale 7-10) 08/25/16 17:45 09/01/16 17:44 08/26/16 16:01 Insulin Aspart (NovoLOG) BEFORE MEALS AND HS SUBQ 08/25/16 21:00 09/24/16 20:59 08/26/16 20:56 Metoprolol Succinate (Toprol XL) 25 mg TWICE A DAY ORAL 08/25/16 18:00 09/24/16 17:59 08/26/16 17:37 Metronidazole (Flagyl) 500 mg Q8HR ORAL 08/25/16 22:00 09/01/16 21:59 08/26/16 21:00 Ondansetron HCl (Zofran) 4 mg Q6H PRN IVP Nausea & Vomiting 08/25/16 17:45 09/24/16 17:44 Oxycodone HCl (OxyCONTIN) 10 mg EVERY 12 HOURS ORAL 08/25/16 21:00 09/01/16 20:59 08/26/16 20:50 Pantoprazole (Protonix) 40 mg DAILY ORAL 08/26/16 09:00 09/25/16 08:59 08/26/16 08:45 Promethazine HCl/ Codeine (Phenergan with Codeine) 5 ml Q4H PRN ORAL For Cough 08/25/16 17:30 09/24/16 17:29 08/26/16 13:51 Quetiapine Fumarate (SEROquel) 400 mg Q24HRS ORAL 08/25/16 21:00 09/24/16 20:59 08/26/16 20:50 Sertraline HCl (Zoloft) 50 mg DAILY ORAL 08/26/16 09:00 09/25/16 08:59 08/26/16 08:46 Vancomycin HCl (Vanco rx to dose) 1 ea DAILY PRN MISC Per rx protocol 08/26/16 09:00 09/25/16 08:59 Vancomycin HCl/ Dextrose (Vancomycin/D5W) 275 ml @ 183.708 mls/hr Q12HR@0300,1500 IVPB 08/26/16 03:00 08/31/16 02:59 08/26/16 15:57 JUSTIN LANG Aug 26, 2016 23:25
[2016-08-27] VITALS: BP 92/45
[2016-08-27] MEDS: Vancomycin 750 MG in D5W 275 ML IVPB SCH ×2 (02:02→15:47)
[2016-08-27 04:00] VITALS: BP 105/53
[2016-08-27] MEDS: metroNIDAZOLE 500mg tab ORAL SCH (05:03)
[2016-08-27] MEDS: NovoLOG Insulin Flexpen SUBQ SCH ×4 (06:07→20:44)
[2016-08-27 07:34] LABS: ANION GAP 14 (5-15); CALCIUM 9.5 mg/dL (8.6-10.2); CARBON DIOXIDE 24 mEQ/L (20-30); CHLORIDE 96 mEQ/L (98-107); CREATININE 0.7 mg/dL (0.5-0.9); GLOMERULAR FILTRATION RATE > 60 mL/min (>60); HEMOLYSIS 0; POTASSIUM 3.7 mEQ/L (3.4-4.9); SODIUM 134 mEQ/L (135-145)
[2016-08-27 07:37] LABS: MEAN CORPUSCULAR HEMOGLOBIN 26.9 PG (27.0-31.0); MEAN CORPUSCULAR HGB CONC 31.9 G/DL (32.0-36.0); MEAN CORPUSCULAR VOLUME 85 FL (80-99); MEAN PLATELET VOLUME 6.2 FL (6.5-10.1); PLATELET COUNT 391 K/UL (150-450); RED BLOOD COUNT 3.27 M/UL (4.20-5.40); RED CELL DISTRIBUTION WIDTH 16.4 % (11.6-14.8)
[2016-08-27 07:48] LABS: WHITE BLOOD COUNT 22.5 K/UL (4.8-10.8)
[2016-08-27] MEDS ORDERED: Tubing Blood Filter IV ONE (08:54)
[2016-08-27] MEDS ORDERED: NS 275ml ONE ×2 (08:54)
[2016-08-27 08:59] LABS: ANISOCYTOSIS 1+; BAND NEUTROPHILS % (MANUAL) 0 % (0-8); BASOPHILS % (MANUAL) 0 % (0-2); EOSINOPHILS % (MANUAL) 0 % (0-3); HYPOCHROMASIA 1+; LYMPHOCYTES % (MANUAL) 10 % (20-45); NEUTROPHILS % (MANUAL) 83 % (45-75); PLATELET ESTIMATE ADEQUATE; PLATELET MORPHOLOGY NORMAL; TOTAL CELLS COUNTED 100
[2016-08-27] MEDS: Cefepime HCl 1 GM in D5W 55 ML IVPB SCH (10:06)
[2016-08-27] MEDS: Sertraline 50mg tab ORAL SCH (10:07)
[2016-08-27] MEDS: Dronabinol 2.5mg Cap ORAL SCH ×2 (10:07→18:00)
[2016-08-27] MEDS: oxyCONTIN 10mg tab ORAL SCH ×2 (10:07→20:42)
[2016-08-27 12:00] VITALS: BP 115/75
--- NOTE | 2016-08-27 13:02 | Consultation ---
VIKTOR FITZGERALD M.D. Aug 27, 2016 13:02
[2016-08-27] MEDS ORDERED: Piperacillin/Tazobactam 4.5 GM in D5W 110 ML IVPB SCH (14:00)
[2016-08-27] MEDS: Piperacillin/Tazobactam 4.5 GM in D5W 110 ML IVPB SCH ×2 (14:23→18:00)
[2016-08-27 16:00] VITALS: BP 138/69
--- NOTE | 2016-08-27 17:18 | Consultation ---
DATE OF CONSULTATION: CONSULTING PHYSICIAN: Lance Otriz M.D. REFERRING PHYSICIAN: Jordy Messer M.D. REASON FOR CONSULTATION: Evaluation of the patient for sepsis, leukocytosis, post obstructive pneumonia and antibiotic management. HISTORY OF PRESENT ILLNESS: The patient is a 66-year-old female with multiple medical problems as listed above, who was admitted to this medical center for coughing up blood. The patient has history of breast cancer with mets. The patient was found to have leukocytosis. An Infectious Disease consultation has requested for further evaluation of the patient's antibiotic management. The patient overall is a poor historian, much of the information is gathered through the chart and speaking to the staff. PAST MEDICAL HISTORY: 1. History of right breast cancer status post radiation. 2. Diarrhea. 3. Hypertension. 4. Hyperlipidemia. 5. Depression. 6. Right lung cancer. 7. History of coronary artery bypass graft in 2007. MEDICATIONS: IV vancomycin and cefepime. ALLERGIES: Ibuprofen. SOCIAL HISTORY: Significant for smoking. REVIEW OF SYSTEMS: A 10-point review was done and except what is mentioned has been negative. PHYSICAL EXAMINATION: VITAL SIGNS: Temperature 97.8 degrees, blood pressure 105/58, pulse 86, and respiratory rate 18. HEENT: Mild conjunctiva. No icterus. NECK: Supple. CHEST: Coarse breathing sounds. HEART: S1 and S2. ABDOMEN: Soft and nontender. EXTREMITIES: No cyanosis. NEUROLOGIC: The patient is awake. LABORATORY AND DIAGNOSTIC DATA: White blood cell count has been 29 and today is 22.5. Urinalysis unremarkable. BUN 11 and creatinine 0.6. ALT and AST unremarkable and alkaline phosphatase 234. Total bilirubin 0.3. CT of the chest showed a 3 centimeter cyst arising from the upper lobe branch of the right pulmonary artery suggestive of tumor invasion into the artery. Also, a 5 cm mass like necroses and gas bubble. ASSESSMENT: The patient is a 66-year-old female with multiple medical problems who has been admitted to this medical center. The patient appears to have a breast cancer with mets to the lung. The patient has necrotic wound with gas bubble suggestive of probable anaerobic process. The patient would benefit from broad-spectrum coverage for the obstructive pneumonia including gram-positives, gram-negatives, and anaerobes. PLAN: 1. We will continue the patient on . 2. Change cefepime to Zosyn. 3. CBC. 4. BMP. 5. Blood cultures (blood and sputum). 6. Monitor chest x-ray. 7. Possible transfer of the patient to [facility] for further care. Thank you, Dr. Mseser, for allowing me to participate in the care of this patient. I will follow the patient with you during this hospitalization. Lance Rudd M.D. DR: JULIEN JOB#: [id number] CC:
[2016-08-27] MEDS: Promethazine/Codeine 5ml UD ORAL PRN (18:00)
--- NOTE | 2016-08-27 19:14 | Internal Med Progress Note ---
Subjective Date of Service: Aug 27, 2016 Physician Name EllisChelly leger Attending Physician Kvng Alba MD Current Medications Medications (Trade) Dose Ordered Sig/Mariola Route PRN Reason Start Time Stop Time Status Last Admin Dose Admin Acetaminophen (Tylenol) 650 mg Q6H PRN ORAL Mild Pain/Temp > 100.5 08/25/16 18:15 09/24/16 18:14 08/26/16 05:17 Albuterol/ Ipratropium (DuoNeb 0.5-3(2.5)mg/3ml) 3 ml Q6H PRN HHN Shortness of Breath 08/25/16 17:45 08/30/16 17:44 Atropine Sulfate (Atropine Opth Verito) 1 drop Q2H PRN SL excessive secretions 08/25/16 19:00 09/24/16 18:59 Baclofen (Lioresal) 10 mg TID PRN ORAL Muscle Spasm 08/26/16 06:00 09/25/16 05:59 08/26/16 13:51 Dextrose STAT PRN IV Hypoglycemia 08/25/16 17:00 09/24/16 16:59 Diphenhydramine HCl (Benadryl) 12.5 mg Q4H PRN ORAL Itching/Pruritis 08/25/16 18:00 09/24/16 17:59 Diphenhydramine HCl (Benadryl) 25 mg HSPRN PRN ORAL Insomnia 08/25/16 18:00 09/24/16 17:59 Docusate Sodium (Colace) 100 mg DAILYPRN PRN ORAL Constipation 08/26/16 09:00 09/25/16 08:59 Dronabinol (Marinol) 2.5 mg BID ORAL 08/25/16 18:00 09/24/16 17:59 08/27/16 18:00 Ferrous Sulfate (Feosol) 325 mg DAILY ORAL 08/26/16 09:00 09/25/16 08:59 08/27/16 10:07 Fexofenadine HCl (Scarlett) 60 mg TWICE A DAY ORAL 08/25/16 18:00 09/24/16 17:59 08/27/16 18:00 Hydrochlorothiazide (Hydrodiuril) 12.5 mg DAILY ORAL 08/26/16 09:00 09/25/16 08:59 08/27/16 10:22 Hydromorphone HCl (Dilaudid) 2 mg Q3H PRN IV Severe Pain (Pain Scale 7-10) 08/25/16 17:45 09/01/16 17:44 08/26/16 16:01 Insulin Aspart (NovoLOG) BEFORE MEALS AND HS SUBQ 08/25/16 21:00 09/24/16 20:59 08/27/16 17:11 Metoprolol Succinate (Toprol XL) 25 mg TWICE A DAY ORAL 08/25/16 18:00 09/24/16 17:59 08/27/16 18:00 Ondansetron HCl (Zofran) 4 mg Q6H PRN IVP Nausea & Vomiting 08/25/16 17:45 09/24/16 17:44 08/27/16 17:58 Oxycodone HCl (OxyCONTIN) 10 mg EVERY 12 HOURS ORAL 08/25/16 21:00 09/01/16 20:59 08/27/16 10:07 Pantoprazole (Protonix) 40 mg DAILY ORAL 08/26/16 09:00 09/25/16 08:59 08/27/16 10:07 Piperacillin Sod/ Tazobactam Sod/ Dextrose (Zosyn/D5W) 110 ml @ 220 mls/hr Q6HR IVPB 08/27/16 14:00 09/03/16 13:59 08/27/16 18:00 Promethazine HCl/ Codeine (Phenergan with Codeine) 5 ml Q4H PRN ORAL For Cough 08/25/16 17:30 09/24/16 17:29 08/27/16 18:00 Quetiapine Fumarate (SEROquel) 400 mg Q24HRS ORAL 08/25/16 21:00 09/24/16 20:59 08/26/16 20:50 Sertraline HCl (Zoloft) 50 mg DAILY ORAL 08/26/16 09:00 09/25/16 08:59 08/27/16 10:07 Vancomycin HCl 1 ea 1 ea DAILY PRN MISC Per rx protocol 08/26/16 09:00 09/25/16 08:59 Vancomycin HCl/ Dextrose (Vancomycin/D5W) 275 ml @ 183.708 mls/hr Q12HR@0300,1500 IVPB 08/26/16 03:00 08/31/16 02:59 08/27/16 15:47 Allergies: Coded Allergies: IBUPROFEN (Verified Allergy, Unknown, 08/23/16) ROS Limited/Unobtainable: No Constitutional: Reports: no symptoms HEENT: Reports: no symptoms Cardiovascular: Reports: no symptoms Respiratory: Reports: other - hemoptysis Gastrointestinal/Abdominal: Reports: no symptoms Genitourinary: Reports: no symptoms Neurologic/Psychiatric: Reports: no symptoms Subjective 66 YO F admitted with hemoptysis. Now pneumonia and RUL mass. Cover for Int Med-Dr Alba May need transfer to [facility] for embolization procedure. Objective Last Vital Signs Date Time Temp Pulse Resp B/P Pulse Ox O2 Delivery O2 Flow Rate FiO2 08/27/16 18:00 75 138/69 08/27/16 16:00 97.0 18 97 Room Air 08/27/16 06:30 21 Laboratory Tests Test 08/27/16 05:15 White Blood Count 22.5 K/UL (4.8-10.8) *H Red Blood Count 3.27 M/UL (4.20-5.40) L Hemoglobin 8.8 G/DL (12.0-16.0) L Hematocrit 27.6 % (37.0-47.0) L Mean Corpuscular Volume 85 FL (80-99) Mean Corpuscular Hemoglobin 26.9 PG (27.0-31.0) L Mean Corpuscular Hemoglobin Concent 31.9 G/DL (32.0-36.0) L Red Cell Distribution Width 16.4 % (11.6-14.8) H Platelet Count 391 K/UL (150-450) Mean Platelet Volume 6.2 FL (6.5-10.1) L Neutrophils (%) (Auto) % (45.0-75.0) Lymphocytes (%) (Auto) % (20.0-45.0) Monocytes (%) (Auto) % (1.0-10.0) Eosinophils (%) (Auto) % (0.0-3.0) Basophils (%) (Auto) % (0.0-2.0) Differential Total Cells Counted 100 Neutrophils % (Manual) 83 % (45-75) H Lymphocytes % (Manual) 10 % (20-45) L Monocytes % (Manual) 7 % (1-10) Eosinophils % (Manual) 0 % (0-3) Basophils % (Manual) 0 % (0-2) Band Neutrophils 0 % (0-8) Platelet Estimate Adequate Platelet Morphology Normal Hypochromasia 1+ Anisocytosis 1+ Sodium Level 134 mEQ/L (135-145) L Potassium Level 3.7 mEQ/L (3.4-4.9) Chloride Level 96 mEQ/L (98-107) L Carbon Dioxide Level 24 mEQ/L (20-30) Anion Gap 14 (5-15) Blood Urea Nitrogen 11 mg/dL (7-23) Creatinine 0.7 mg/dL (0.5-0.9) Estimat Glomerular Filtration Rate > 60 mL/min (>60) Glucose Level 131 mg/dL (74-106) H Calcium Level 9.5 mg/dL (8.6-10.2) Intake and Output 08/26/16 08/27/16 19:00 07:00 Intake Total 1152.416 ml Balance 1152.416 ml Intake Oral 480 ml IV Total 422.416 ml Blood Product 250 ml # Voids 4 5 Objective General: alert, cooperative, no distress, appears stated age Head: normocephalic, without obvious abnormality, atraumatic Eyes: conjunctivae/corneas clear. PERRL, EOM's intact Throat: lips, mucosa, and tongue normal. MMM Neck: supple, symmetrical, trachea midline, and no JVD Lungs: Decreased breath sounds RUL; otherwise, clear to auscultation bilaterally Heart: regular rate and rhythm, S1, S2 normal, no murmur, click, rub or gallop Abdomen: soft, non-tender, non-distended, bowel sounds normal; no masses or organomegaly Extremities: extremities normal, atraumatic, no cyanosis or edema Pulses: 2+ and symmetric Skin: skin color, texture, turgor normal; no rashes or lesions Neurologic: grossly normal, no focal deficits Assessment/Plan Problem List: (1) Leukocytosis (2) Diabetes mellitus type II, uncontrolled Assessment & Plan: Cont novolog sliding scale. (3) Hypercholesteremia (4) Coronary artery disease (5) Depression (6) Breast cancer (7) Pneumonia (8) Hemoptysis Assessment & Plan: May need transfer to [facility] for embolization procedure. (9) Lung cancer Assessment & Plan: RUL. ?metastatic breast cancer? See onc note. (10) Sepsis (11) HTN (hypertension) (12) Anemia due to blood loss Assessment & Plan: S/P transfusion 1 unit PRBC. Status: not improved Assessment/Plan Discussed with patient and daughter. CHELLY ELLIS Aug 27, 2016 19:14
[2016-08-27 20:10] VITALS: BP 105/59
[2016-08-27] MEDS: QUEtiapine 200mg tab ORAL SCH (20:42)
--- NOTE | 2016-08-27 21:24 | General Progress Note ---
Assessment/Plan Assessment/Plan ASSESSMENT: # 5.5 cm area of low attenuation within cephalad portion of mass likely represents necrosis. Small gas bubbles at the periphery may be part of the chronic process and/or represent pathologic communication with bronchus. 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 # Leukocytosis. # Right lower lobe pneumonia. # Diabetes type 2. # Hypertension. TREATMENT: - Given patient has refused chemotherapy/treatment before, needs tissue diagnosis or conservative care as per pt preference - Antibiotics as per ID/Pulm team for PNA - Appreciate pulmonary recommendations - Prognosis remains poor - Amicar for hemoptysis agree - Consider XRT for SVC compression though again she wants only conservative measures - Anemia w/u ordered-confirms 2/2 chronic disease - Continue ferrous sulfate and PPI - Appreciate consultation Subjective Constitutional: Reports: no symptoms HEENT: Reports: no symptoms Cardiovascular: Reports: no symptoms Respiratory: Reports: cough Gastrointestinal/Abdominal: Reports: no symptoms Genitourinary: Reports: no symptoms Neurologic/Psychiatric: Reports: no symptoms Endocrine: Reports: no symptoms Hematologic/Lymphatic: Reports: anemia Allergies: Coded Allergies: IBUPROFEN (Verified Allergy, Unknown, 08/23/16) Subjective episode of hemoptysis, was placed in isolation Objective Last 24 Hour Vital Signs Date Time Temp Pulse Resp B/P Pulse Ox O2 Delivery O2 Flow Rate FiO2 08/27/16 20:10 97.0 73 20 105/59 91 Room Air 08/27/16 19:30 72 18 Room Air 21 08/27/16 18:00 75 138/69 08/27/16 16:00 97.0 75 18 138/69 97 Room Air 08/27/16 12:00 97.1 68 20 115/75 97 Room Air 08/27/16 10:22 72 131/61 08/27/16 06:30 68 16 Room Air 21 08/27/16 04:00 97.8 66 19 105/53 97 Room Air 08/27/16 00:00 97.5 67 20 92/45 94 Room Air Intake and Output 08/26/16 08/27/16 19:00 07:00 Intake Total 1152.416 ml Balance 1152.416 ml Intake Oral 480 ml IV Total 422.416 ml Blood Product 250 ml # Voids 4 5 Laboratory Tests 08/27/16 05:15: White Blood Count 22.5*H, Red Blood Count 3.27L, Hemoglobin 8.8L, Hematocrit 27.6L, Mean Corpuscular Volume 85, Mean Corpuscular Hemoglobin 26.9L, Mean Corpuscular Hemoglobin Concent 31.9L, Red Cell Distribution Width 16.4H, Platelet Count 391, Mean Platelet Volume 6.2L, Neutrophils (%) (Auto) , Lymphocytes (%) (Auto) , Monocytes (%) (Auto) , Eosinophils (%) (Auto) , Basophils (%) (Auto) , Differential Total Cells Counted 100, Neutrophils % ( Manual) 83H, Lymphocytes % (Manual) 10L, Monocytes % (Manual) 7, Eosinophils % ( Manual) 0, Basophils % (Manual) 0, Band Neutrophils 0, Platelet Estimate Adequate, Platelet Morphology Normal, Hypochromasia 1+, Anisocytosis 1+, Sodium Level 134L, Potassium Level 3.7, Chloride Level 96L, Carbon Dioxide Level 24, Anion Gap 14, Blood Urea Nitrogen 11, Creatinine 0.7, Estimat Glomerular Filtration Rate > 60, Glucose Level 131H, Calcium Level 9.5 Height (Feet): 5 Height (Inches): 7.00 Weight (Pounds): 137 General Appearance: WD/WN, mild distress Neck: non-tender Cardiovascular: normal peripheral pulses Respiratory/Chest: chest wall non-tender Abdomen: normal bowel sounds Extremities: normal range of motion Edema: no edema noted Leg (L), no edema noted Leg (R), no edema noted Pedal (L) , no edema noted Pedal (R), no edema noted Generalized Neurologic: no motor/sensory deficits Skin: warm/dry Ted Chen Aug 27, 2016 21:24
--- NOTE | 2016-08-27 23:12 | Pulmonology Progress Note ---
Assessment/Plan Problems: (1) Hemoptysis (2) Sepsis (3) Pneumonia (4) Lung cancer (5) HTN (hypertension) Assessment/Plan f/u cbc continue abx d/w radiologist and dr rivas check sputum Subjective Allergies: Coded Allergies: IBUPROFEN (Verified Allergy, Unknown, 08/23/16) Objective Last 24 Hour Vital Signs Date Time Temp Pulse Resp B/P Pulse Ox O2 Delivery O2 Flow Rate FiO2 08/27/16 20:10 97.0 73 20 105/59 91 Room Air 08/27/16 19:30 72 18 Room Air 21 08/27/16 18:00 75 138/69 08/27/16 16:00 97.0 75 18 138/69 97 Room Air 08/27/16 12:00 97.1 68 20 115/75 97 Room Air 08/27/16 10:22 72 131/61 08/27/16 06:30 68 16 Room Air 21 08/27/16 04:00 97.8 66 19 105/53 97 Room Air 08/27/16 00:00 97.5 67 20 92/45 94 Room Air Intake and Output 08/26/16 08/27/16 19:00 07:00 Intake Total 1152.416 ml Balance 1152.416 ml Intake Oral 480 ml IV Total 422.416 ml Blood Product 250 ml # Voids 4 5 Laboratory Tests 08/27/16 05:15: White Blood Count 22.5*H, Red Blood Count 3.27L, Hemoglobin 8.8L, Hematocrit 27.6L, Mean Corpuscular Volume 85, Mean Corpuscular Hemoglobin 26.9L, Mean Corpuscular Hemoglobin Concent 31.9L, Red Cell Distribution Width 16.4H, Platelet Count 391, Mean Platelet Volume 6.2L, Neutrophils (%) (Auto) , Lymphocytes (%) (Auto) , Monocytes (%) (Auto) , Eosinophils (%) (Auto) , Basophils (%) (Auto) , Differential Total Cells Counted 100, Neutrophils % ( Manual) 83H, Lymphocytes % (Manual) 10L, Monocytes % (Manual) 7, Eosinophils % ( Manual) 0, Basophils % (Manual) 0, Band Neutrophils 0, Platelet Estimate Adequate, Platelet Morphology Normal, Hypochromasia 1+, Anisocytosis 1+, Sodium Level 134L, Potassium Level 3.7, Chloride Level 96L, Carbon Dioxide Level 24, Anion Gap 14, Blood Urea Nitrogen 11, Creatinine 0.7, Estimat Glomerular Filtration Rate > 60, Glucose Level 131H, Calcium Level 9.5 Current Medications Medications (Trade) Dose Ordered Sig/Mariola Route PRN Reason Start Time Stop Time Status Last Admin Dose Admin Acetaminophen (Tylenol) 650 mg Q6H PRN ORAL Mild Pain/Temp > 100.5 08/25/16 18:15 09/24/16 18:14 08/26/16 05:17 Albuterol/ Ipratropium (DuoNeb 0.5-3(2.5)mg/3ml) 3 ml Q6H PRN HHN Shortness of Breath 08/25/16 17:45 08/30/16 17:44 Atropine Sulfate (Atropine Opth Verito) 1 drop Q2H PRN SL excessive secretions 08/25/16 19:00 09/24/16 18:59 Baclofen (Lioresal) 10 mg TID PRN ORAL Muscle Spasm 08/26/16 06:00 09/25/16 05:59 08/26/16 13:51 Dextrose STAT PRN IV Hypoglycemia 08/25/16 17:00 09/24/16 16:59 Diphenhydramine HCl (Benadryl) 12.5 mg Q4H PRN ORAL Itching/Pruritis 08/25/16 18:00 09/24/16 17:59 Diphenhydramine HCl (Benadryl) 25 mg HSPRN PRN ORAL Insomnia 08/25/16 18:00 09/24/16 17:59 08/27/16 20:42 Docusate Sodium (Colace) 100 mg DAILYPRN PRN ORAL Constipation 08/26/16 09:00 09/25/16 08:59 Dronabinol (Marinol) 2.5 mg BID ORAL 08/25/16 18:00 09/24/16 17:59 08/27/16 18:00 Ferrous Sulfate (Feosol) 325 mg DAILY ORAL 08/26/16 09:00 09/25/16 08:59 08/27/16 10:07 Fexofenadine HCl (Scarlett) 60 mg TWICE A DAY ORAL 08/25/16 18:00 09/24/16 17:59 08/27/16 18:00 Hydrochlorothiazide (Hydrodiuril) 12.5 mg DAILY ORAL 08/26/16 09:00 09/25/16 08:59 08/27/16 10:22 Hydromorphone HCl (Dilaudid) 2 mg Q3H PRN IV Severe Pain (Pain Scale 7-10) 08/25/16 17:45 09/01/16 17:44 08/26/16 16:01 Insulin Aspart (NovoLOG) BEFORE MEALS AND HS SUBQ 08/25/16 21:00 09/24/16 20:59 08/27/16 20:44 Metoprolol Succinate (Toprol XL) 25 mg TWICE A DAY ORAL 08/25/16 18:00 09/24/16 17:59 08/27/16 18:00 Ondansetron HCl (Zofran) 4 mg Q6H PRN IVP Nausea & Vomiting 08/25/16 17:45 09/24/16 17:44 08/27/16 17:58 Oxycodone HCl (OxyCONTIN) 10 mg EVERY 12 HOURS ORAL 08/25/16 21:00 09/01/16 20:59 08/27/16 20:42 Pantoprazole (Protonix) 40 mg DAILY ORAL 08/26/16 09:00 09/25/16 08:59 08/27/16 10:07 Piperacillin Sod/ Tazobactam Sod/ Dextrose (Zosyn/D5W) 110 ml @ 220 mls/hr Q6HR IVPB 08/27/16 14:00 09/03/16 13:59 08/27/16 18:00 Promethazine HCl/ Codeine (Phenergan with Codeine) 5 ml Q4H PRN ORAL For Cough 08/25/16 17:30 09/24/16 17:29 08/27/16 18:00 Quetiapine Fumarate (SEROquel) 400 mg Q24HRS ORAL 08/25/16 21:00 09/24/16 20:59 08/27/16 20:42 Sertraline HCl (Zoloft) 50 mg DAILY ORAL 08/26/16 09:00 09/25/16 08:59 08/27/16 10:07 Vancomycin HCl 1 ea 1 ea DAILY PRN MISC Per rx protocol 08/26/16 09:00 09/25/16 08:59 Vancomycin HCl/ Dextrose (Vancomycin/D5W) 275 ml @ 183.708 mls/hr Q12HR@0300,1500 IVPB 08/26/16 03:00 08/31/16 02:59 08/27/16 15:47 JUSTIN LANG Aug 27, 2016 23:12
[2016-08-28 00:06] VITALS: BP 90/53
[2016-08-28] MEDS: Piperacillin/Tazobactam 4.5 GM in D5W 110 ML IVPB SCH ×3 (02:16→12:31)
[2016-08-28] MEDS: Vancomycin 750 MG in D5W 275 ML IVPB SCH ×2 (02:40→15:23)
[2016-08-28] MEDS: Promethazine/Codeine 5ml UD ORAL PRN ×2 (03:40→13:24)
[2016-08-28 04:00] VITALS: BP 100/51
[2016-08-28] MEDS: NovoLOG Insulin Flexpen SUBQ SCH ×3 (06:24→17:16)
[2016-08-28 07:17] LABS: ANION GAP 11 (5-15); CALCIUM 9.8 mg/dL (8.6-10.2); CARBON DIOXIDE 26 mEQ/L (20-30); CHLORIDE 95 mEQ/L (98-107); CREATININE 0.6 mg/dL (0.5-0.9); GLOMERULAR FILTRATION RATE > 60 mL/min (>60); HEMOLYSIS 0; POTASSIUM 3.5 mEQ/L (3.4-4.9); SODIUM 132 mEQ/L (135-145)
[2016-08-28 07:35] LABS: BASOPHILS % (AUTO) 1.3 % (0.0-2.0); LYMPHOCYTES % (AUTO) 7.8 % (20.0-45.0); MEAN CORPUSCULAR HEMOGLOBIN 26.9 PG (27.0-31.0); MEAN CORPUSCULAR HGB CONC 31.9 G/DL (32.0-36.0); MEAN CORPUSCULAR VOLUME 84 FL (80-99); MONOCYTES % (AUTO) 6.8 % (1.0-10.0); NEUTROPHILS % (AUTO) 83.1 % (45.0-75.0); PLATELET COUNT 423 K/UL (150-450); RED BLOOD COUNT 3.16 M/UL (4.20-5.40); RED CELL DISTRIBUTION WIDTH 16.5 % (11.6-14.8); WHITE BLOOD COUNT 16.5 K/UL (4.8-10.8)
[2016-08-28 08:44] VITALS: BP 87/41
[2016-08-28 09:09] VITALS: BP 95/61
[2016-08-28] MEDS: oxyCONTIN 10mg tab ORAL SCH (09:19)
[2016-08-28] MEDS: Dronabinol 2.5mg Cap ORAL SCH (09:19)
[2016-08-28] MEDS: Sertraline 50mg tab ORAL SCH (09:19)
--- NOTE | 2016-08-28 09:36 | Infectious Diseases Prog Note ---
Assessment/Plan Assessment/Plan A: The patient is a 66-year-old female with Sepsis, Leukocytosis improving post obstructive pneumonia hemoptysis due to cancer CT: CT of the chest: 3 centimeter cyst arising from the upper lobe branch of the right pulmonary artery suggestive of tumor invasion into the artery. Also, a 5 cm mass like necroses and gas bubble. Breast cancer with mets Hypertension. Hyperlipidemia Depression. Right lung cancer. History of coronary artery bypass graft in 2007 PLAN: continue the patient on IV Vanco d# 5 / 14 , and Zosyn d# 2 / 10 CBC BMP Blood cultures (blood and sputum). Monitor chest x-ray. Possible transfer of the patient to [facility] for further care Subjective Constitutional: Denies: anorexia, chills, drenching sweats, fatigue, fever, no symptoms, other Allergies: Coded Allergies: IBUPROFEN (Verified Allergy, Unknown, 08/23/16) Objective Vital Signs Last 24 Hour Vital Signs Date Time Temp Pulse Resp B/P Pulse Ox O2 Delivery O2 Flow Rate FiO2 08/28/16 09:09 69 95/61 08/28/16 09:00 69 95/61 08/28/16 08:44 96.1 74 18 87/41 Room Air 08/28/16 07:53 74 18 Room Air 21 08/28/16 04:00 98.1 72 20 100/51 90 Room Air 08/28/16 00:06 98.4 72 20 90/53 93 Room Air 08/27/16 20:10 97.0 73 20 105/59 91 Room Air 08/27/16 19:30 72 18 Room Air 21 08/27/16 18:00 75 138/69 08/27/16 16:00 97.0 75 18 138/69 97 Room Air 08/27/16 12:00 97.1 68 20 115/75 97 Room Air 08/27/16 10:22 72 131/61 Height (Feet): 5 Height (Inches): 7.00 Weight (Pounds): 137 HEENT: anicteric Respiratory/Chest: no respiratory distress Cardiovascular: regularly irregular Genitourinary: normal external genitalia Microbiology Date/Time Source Procedure Growth Status 08/27/16 17:00 Sputum Gram Stain Pending Resulted 08/27/16 17:00 Sputum Sputum Culture - Preliminary NO GROWTH AFTER 24 HOURS Resulted Laboratory Tests Test 08/28/16 06:00 White Blood Count 16.5 K/UL (4.8-10.8) H Red Blood Count 3.16 M/UL (4.20-5.40) L Hemoglobin 8.5 G/DL (12.0-16.0) L Hematocrit 26.7 % (37.0-47.0) L Mean Corpuscular Volume 84 FL (80-99) Mean Corpuscular Hemoglobin 26.9 PG (27.0-31.0) L Mean Corpuscular Hemoglobin Concent 31.9 G/DL (32.0-36.0) L Red Cell Distribution Width 16.5 % (11.6-14.8) H Platelet Count 423 K/UL (150-450) Mean Platelet Volume 6.0 FL (6.5-10.1) L Neutrophils (%) (Auto) 83.1 % (45.0-75.0) H Lymphocytes (%) (Auto) 7.8 % (20.0-45.0) L Monocytes (%) (Auto) 6.8 % (1.0-10.0) Eosinophils (%) (Auto) 1.0 % (0.0-3.0) Basophils (%) (Auto) 1.3 % (0.0-2.0) Sodium Level 132 mEQ/L (135-145) L Potassium Level 3.5 mEQ/L (3.4-4.9) Chloride Level 95 mEQ/L (98-107) L Carbon Dioxide Level 26 mEQ/L (20-30) Anion Gap 11 (5-15) Blood Urea Nitrogen 8 mg/dL (7-23) Creatinine 0.6 mg/dL (0.5-0.9) Estimat Glomerular Filtration Rate > 60 mL/min (>60) Glucose Level 166 mg/dL (74-106) H Calcium Level 9.8 mg/dL (8.6-10.2) Current Medications Medications (Trade) Dose Ordered Sig/Mariola Route PRN Reason Start Time Stop Time Status Last Admin Dose Admin Acetaminophen (Tylenol) 650 mg Q6H PRN ORAL Mild Pain/Temp > 100.5 08/25/16 18:15 09/24/16 18:14 08/26/16 05:17 Albuterol/ Ipratropium (DuoNeb 0.5-3(2.5)mg/3ml) 3 ml Q6H PRN HHN Shortness of Breath 08/25/16 17:45 08/30/16 17:44 Atropine Sulfate (Atropine Opth Verito) 1 drop Q2H PRN SL excessive secretions 08/25/16 19:00 09/24/16 18:59 Baclofen (Lioresal) 10 mg TID PRN ORAL Muscle Spasm 08/26/16 06:00 09/25/16 05:59 08/26/16 13:51 Dextrose STAT PRN IV Hypoglycemia 08/25/16 17:00 09/24/16 16:59 Diphenhydramine HCl (Benadryl) 12.5 mg Q4H PRN ORAL Itching/Pruritis 08/25/16 18:00 09/24/16 17:59 Diphenhydramine HCl (Benadryl) 25 mg HSPRN PRN ORAL Insomnia 08/25/16 18:00 09/24/16 17:59 08/27/16 20:42 Docusate Sodium (Colace) 100 mg DAILYPRN PRN ORAL Constipation 08/26/16 09:00 09/25/16 08:59 Dronabinol (Marinol) 2.5 mg BID ORAL 08/25/16 18:00 09/24/16 17:59 08/28/16 09:19 Ferrous Sulfate (Feosol) 325 mg DAILY ORAL 08/26/16 09:00 09/25/16 08:59 08/28/16 09:19 Fexofenadine HCl (Scarlett) 60 mg TWICE A DAY ORAL 08/25/16 18:00 09/24/16 17:59 08/28/16 09:19 Hydrochlorothiazide (Hydrodiuril) 12.5 mg DAILY ORAL 08/26/16 09:00 09/25/16 08:59 08/27/16 10:22 Hydromorphone HCl (Dilaudid) 2 mg Q3H PRN IV Severe Pain (Pain Scale 7-10) 08/25/16 17:45 09/01/16 17:44 08/28/16 06:22 Insulin Aspart (NovoLOG) BEFORE MEALS AND HS SUBQ 08/25/16 21:00 09/24/16 20:59 08/28/16 06:24 Metoprolol Succinate (Toprol XL) 25 mg TWICE A DAY ORAL 08/25/16 18:00 09/24/16 17:59 08/27/16 18:00 Ondansetron HCl (Zofran) 4 mg Q6H PRN IVP Nausea & Vomiting 08/25/16 17:45 09/24/16 17:44 08/27/16 17:58 Oxycodone HCl (OxyCONTIN) 10 mg EVERY 12 HOURS ORAL 08/25/16 21:00 09/01/16 20:59 08/28/16 09:19 Pantoprazole (Protonix) 40 mg DAILY ORAL 08/26/16 09:00 09/25/16 08:59 08/28/16 09:19 Piperacillin Sod/ Tazobactam Sod/ Dextrose (Zosyn/D5W) 110 ml @ 220 mls/hr Q6HR IVPB 08/27/16 14:00 09/03/16 13:59 08/28/16 05:39 Promethazine HCl/ Codeine (Phenergan with Codeine) 5 ml Q4H PRN ORAL For Cough 08/25/16 17:30 09/24/16 17:29 08/28/16 03:40 Quetiapine Fumarate (SEROquel) 400 mg Q24HRS ORAL 08/25/16 21:00 09/24/16 20:59 08/27/16 20:42 Sertraline HCl (Zoloft) 50 mg DAILY ORAL 08/26/16 09:00 09/25/16 08:59 08/28/16 09:19 Vancomycin HCl 1 ea 1 ea DAILY PRN MISC Per rx protocol 08/26/16 09:00 09/25/16 08:59 Vancomycin HCl/ Dextrose (Vancomycin/D5W) 275 ml @ 183.708 mls/hr Q12HR@0300,1500 IVPB 08/26/16 03:00 08/31/16 02:59 08/28/16 02:40 VIKTOR FITZGERALD M.D. Aug 28, 2016 09:36
[2016-08-28 12:47] VITALS: BP 105/50
[2016-08-28 16:29] VITALS: BP 111/45
[2016-08-28] MEDS ORDERED: Tubing IV Secondary IV ONE (18:26)
[2016-08-28] MEDS ORDERED: NS 275ml ONE (18:26)
[2016-08-28] MEDS ORDERED: ACETAMINOPHEN325 M1 ORAL (18:28)
[2016-08-28] MEDS ORDERED: ATROPINE 0.01%-10 ML OP (18:29)
[2016-08-28] MEDS ORDERED: BACLOFEN10 MG ORAL (18:29)
[2016-08-28] MEDS ORDERED: BENADRYL25 MG ORAL (18:29)
[2016-08-28] MEDS ORDERED: FERROUS SULFAT325 MG ORAL (18:30)
[2016-08-28] MEDS ORDERED: COLACE100 MG ORAL (18:30)
[2016-08-28] MEDS ORDERED: FEXOFENADINE HC60 MG ORAL (18:30)
[2016-08-28] MEDS ORDERED: MARINOL2.5 MG ORAL (18:30)
[2016-08-28] MEDS ORDERED: DILAUDID 22 MG/1 M1 IV (18:31)
[2016-08-28] MEDS ORDERED: DILAUDID1 MG/1 ML PO (18:31)
[2016-08-28] MEDS ORDERED: HYDROCHLOROTH12.5 M2 ORAL (18:31)
[2016-08-28] MEDS ORDERED: METOPROLOL TART25 MG ORAL (18:32)
[2016-08-28] MEDS ORDERED: DUONEB 0.5-3(2.53 ML HHN (18:32)
[2016-08-28] MEDS ORDERED: ZOFRAN 4 MG4 MG/2 ML IV (18:32)
[2016-08-28] MEDS ORDERED: NOVOLOG100 UNIT/3 SUBQ (18:32)
[2016-08-28] MEDS ORDERED: PROTONIX40 MG ORAL (18:33)
[2016-08-28] MEDS ORDERED: OXYCONTIN10 MG ORAL (18:33)
[2016-08-28] MEDS ORDERED: PROMETH-CODEIN 65 ML PO (18:34)
[2016-08-28] MEDS ORDERED: ZOSYN 3.373.375 GM/1 IVPB (18:34)
[2016-08-28] MEDS ORDERED: SEROQUEL200 MG ORAL (18:35)
[2016-08-28] MEDS ORDERED: SERTRALINE HCL50 MG ORAL (18:35)
[2016-08-28] MEDS ORDERED: VANCOMYCIN1 GM/2502 IVPB (18:35)
--- NOTE | 2016-08-28 19:41 | Internal Med Progress Note ---
Subjective Date of Service: Aug 28, 2016 Physician Name Austen Chen Attending Physician Kvng Alba MD Allergies: Coded Allergies: IBUPROFEN (Verified Allergy, Unknown, 08/23/16) ROS Limited/Unobtainable: No Constitutional: Reports: no symptoms HEENT: Reports: no symptoms Cardiovascular: Reports: no symptoms Respiratory: Reports: cough, other - hemoptysis Gastrointestinal/Abdominal: Reports: no symptoms Genitourinary: Reports: no symptoms Neurologic/Psychiatric: Reports: no symptoms Subjective 66 YO F admitted with hemoptysis. Now pneumonia and RUL mass. Cover for Int Med-Dr Alba Await transfer to [facility] for embolization procedure. Objective Last Vital Signs Date Time Temp Pulse Resp B/P Pulse Ox O2 Delivery O2 Flow Rate FiO2 08/28/16 16:29 97.5 68 20 111/45 96 Room Air 08/28/16 07:53 21 Laboratory Tests Test 08/28/16 06:00 White Blood Count 16.5 K/UL (4.8-10.8) H Red Blood Count 3.16 M/UL (4.20-5.40) L Hemoglobin 8.5 G/DL (12.0-16.0) L Hematocrit 26.7 % (37.0-47.0) L Mean Corpuscular Volume 84 FL (80-99) Mean Corpuscular Hemoglobin 26.9 PG (27.0-31.0) L Mean Corpuscular Hemoglobin Concent 31.9 G/DL (32.0-36.0) L Red Cell Distribution Width 16.5 % (11.6-14.8) H Platelet Count 423 K/UL (150-450) Mean Platelet Volume 6.0 FL (6.5-10.1) L Neutrophils (%) (Auto) 83.1 % (45.0-75.0) H Lymphocytes (%) (Auto) 7.8 % (20.0-45.0) L Monocytes (%) (Auto) 6.8 % (1.0-10.0) Eosinophils (%) (Auto) 1.0 % (0.0-3.0) Basophils (%) (Auto) 1.3 % (0.0-2.0) Sodium Level 132 mEQ/L (135-145) L Potassium Level 3.5 mEQ/L (3.4-4.9) Chloride Level 95 mEQ/L (98-107) L Carbon Dioxide Level 26 mEQ/L (20-30) Anion Gap 11 (5-15) Blood Urea Nitrogen 8 mg/dL (7-23) Creatinine 0.6 mg/dL (0.5-0.9) Estimat Glomerular Filtration Rate > 60 mL/min (>60) Glucose Level 166 mg/dL (74-106) H Calcium Level 9.8 mg/dL (8.6-10.2) Microbiology Date/Time Source Procedure Growth Status 08/27/16 17:00 Sputum Gram Stain - Final Resulted 08/27/16 17:00 Sputum Sputum Culture - Preliminary NO GROWTH AFTER 24 HOURS Resulted 08/27/16 17:00 Urine,Clean Catch Urine Culture - Preliminary Resulted Intake and Output 08/27/16 08/28/16 19:00 07:00 Intake Total 975.000 ml Balance 975.000 ml Intake Oral 480 ml IV Total 495.000 ml # Voids 3 1 # Bowel Movements 2 Objective General: alert, cooperative, no distress, appears stated age Head: normocephalic, without obvious abnormality, atraumatic Eyes: conjunctivae/corneas clear. PERRL, EOM's intact Throat: lips, mucosa, and tongue normal. MMM Neck: supple, symmetrical, trachea midline, and no JVD Lungs: Decreased breath sounds RUL; otherwise, clear to auscultation bilaterally Heart: regular rate and rhythm, S1, S2 normal, no murmur, click, rub or gallop Abdomen: soft, non-tender, non-distended, bowel sounds normal; no masses or organomegaly Extremities: extremities normal, atraumatic, no cyanosis or edema Pulses: 2+ and symmetric Skin: skin color, texture, turgor normal; no rashes or lesions Neurologic: grossly normal, no focal deficits Assessment/Plan Problem List: (1) Leukocytosis (2) Diabetes mellitus type II, uncontrolled Assessment & Plan: Cont novolog sliding scale. (3) Hypercholesteremia (4) Coronary artery disease (5) Depression (6) Breast cancer (7) Pneumonia (8) Hemoptysis Assessment & Plan: Transfer to [facility] for embolization procedure today (9) Lung cancer Assessment & Plan: RUL. ?metastatic breast cancer? See onc note. (10) Sepsis (11) HTN (hypertension) (12) Anemia due to blood loss Assessment & Plan: S/P transfusion 1 unit PRBC. Status: not improved Assessment/Plan Discussed with patient and daughter. AUSTEN CHEN Aug 28, 2016 19:40
--- NOTE | 2016-08-28 22:11 | General Progress Note ---
Assessment/Plan Assessment/Plan ASSESSMENT: # 5.5 cm area of low attenuation within cephalad portion of mass likely represents necrosis. Small gas bubbles at the periphery may be part of the chronic process and/or represent pathologic communication with bronchus. 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 # Leukocytosis. # Right lower lobe pneumonia. # Diabetes type 2. # Hypertension. TREATMENT: - Given patient has refused chemotherapy/treatment before, needs tissue diagnosis or conservative care as per pt preference - Antibiotics as per ID/Pulm team for PNA - Appreciate pulmonary recommendations - Prognosis remains poor - Amicar for hemoptysis agree - Consider XRT for SVC compression though again she wants only conservative measures - Anemia w/u ordered-confirms 2/2 chronic disease - Continue ferrous sulfate and PPI - Appreciate consultation Subjective Constitutional: Reports: no symptoms HEENT: Reports: no symptoms Cardiovascular: Reports: no symptoms Respiratory: Reports: no symptoms Gastrointestinal/Abdominal: Reports: no symptoms Genitourinary: Reports: no symptoms Neurologic/Psychiatric: Reports: no symptoms Endocrine: Reports: no symptoms Hematologic/Lymphatic: Reports: anemia Allergies: Coded Allergies: IBUPROFEN (Verified Allergy, Unknown, 08/23/16) Subjective NAD, pt to be transferred to [facility] for further care Objective Last 24 Hour Vital Signs Date Time Temp Pulse Resp B/P Pulse Ox O2 Delivery O2 Flow Rate FiO2 08/28/16 16:29 97.5 68 20 111/45 96 Room Air 08/28/16 12:47 97.7 77 19 105/50 93 Room Air 08/28/16 09:09 69 95/61 08/28/16 09:00 69 95/61 08/28/16 08:44 96.1 74 18 87/41 Room Air 08/28/16 07:53 74 18 Room Air 21 08/28/16 04:00 98.1 72 20 100/51 90 Room Air 08/28/16 00:06 98.4 72 20 90/53 93 Room Air Intake and Output 08/27/16 08/28/16 19:00 07:00 Intake Total 975.000 ml Balance 975.000 ml Intake Oral 480 ml IV Total 495.000 ml # Voids 3 1 # Bowel Movements 2 Laboratory Tests 08/28/16 06:00: White Blood Count 16.5H, Red Blood Count 3.16L, Hemoglobin 8.5L, Hematocrit 26.7L, Mean Corpuscular Volume 84, Mean Corpuscular Hemoglobin 26.9L, Mean Corpuscular Hemoglobin Concent 31.9L, Red Cell Distribution Width 16.5H, Platelet Count 423, Mean Platelet Volume 6.0L, Neutrophils (%) (Auto) 83.1H, Lymphocytes (%) (Auto) 7.8L, Monocytes (%) (Auto) 6.8, Eosinophils (%) (Auto) 1.0, Basophils (%) (Auto) 1.3, Sodium Level 132L, Potassium Level 3.5, Chloride Level 95L, Carbon Dioxide Level 26, Anion Gap 11, Blood Urea Nitrogen 8, Creatinine 0.6, Estimat Glomerular Filtration Rate > 60, Glucose Level 166H, Calcium Level 9.8 Height (Feet): 5 Height (Inches): 7.00 Weight (Pounds): 137 General Appearance: WD/WN EENT: PERRL/EOMI Neck: non-tender Cardiovascular: normal rate Respiratory/Chest: lungs clear Abdomen: normal bowel sounds, non tender Extremities: normal range of motion Neurologic: counseling aide II-XII grossly normal Skin: warm/dry Ted Chen Aug 28, 2016 22:11
--- NOTE | 2016-08-28 23:36 | Pulmonology Progress Note ---
Assessment/Plan Problems: (1) Hemoptysis (2) Sepsis (3) Pneumonia (4) Lung cancer (5) HTN (hypertension) Assessment/Plan f/u cbc continue abx d/w radiologist and dr rivas check sputum Subjective Allergies: Coded Allergies: IBUPROFEN (Verified Allergy, Unknown, 08/23/16) Objective Last 24 Hour Vital Signs Date Time Temp Pulse Resp B/P Pulse Ox O2 Delivery O2 Flow Rate FiO2 08/28/16 16:29 97.5 68 20 111/45 96 Room Air 08/28/16 12:47 97.7 77 19 105/50 93 Room Air 08/28/16 09:09 69 95/61 08/28/16 09:00 69 95/61 08/28/16 08:44 96.1 74 18 87/41 Room Air 08/28/16 07:53 74 18 Room Air 21 08/28/16 04:00 98.1 72 20 100/51 90 Room Air 08/28/16 00:06 98.4 72 20 90/53 93 Room Air Intake and Output 08/27/16 08/28/16 19:00 07:00 Intake Total 975.000 ml Balance 975.000 ml Intake Oral 480 ml IV Total 495.000 ml # Voids 3 1 # Bowel Movements 2 Microbiology Date/Time Source Procedure Growth Status 08/27/16 17:00 Sputum Gram Stain - Final Resulted 08/27/16 17:00 Sputum Sputum Culture - Preliminary NO GROWTH AFTER 24 HOURS Resulted 08/27/16 17:00 Urine,Clean Catch Urine Culture - Preliminary Resulted Laboratory Tests 08/28/16 06:00: White Blood Count 16.5H, Red Blood Count 3.16L, Hemoglobin 8.5L, Hematocrit 26.7L, Mean Corpuscular Volume 84, Mean Corpuscular Hemoglobin 26.9L, Mean Corpuscular Hemoglobin Concent 31.9L, Red Cell Distribution Width 16.5H, Platelet Count 423, Mean Platelet Volume 6.0L, Neutrophils (%) (Auto) 83.1H, Lymphocytes (%) (Auto) 7.8L, Monocytes (%) (Auto) 6.8, Eosinophils (%) (Auto) 1.0, Basophils (%) (Auto) 1.3, Sodium Level 132L, Potassium Level 3.5, Chloride Level 95L, Carbon Dioxide Level 26, Anion Gap 11, Blood Urea Nitrogen 8, Creatinine 0.6, Estimat Glomerular Filtration Rate > 60, Glucose Level 166H, Calcium Level 9.8 JUSTIN LANG Aug 28, 2016 23:36
--- NOTE | 2016-08-29 03:07 | Progress Note ---
SUBJECTIVE: The patient is confused, who presents with depressed mood, worthlessness, hopelessness, and decreased energy. The patient is having decreased energy in the room. MENTAL STATUS EXAMINATION: The patient is alert and oriented x3. Mood is depressed. Affect is constricted. Congruent with mood. Thought process is linear. Thought content, no suicidal or homicidal ideation. ASSESSMENT: 1. Major depressive disorder. 2. Cancer. PLAN: 1. The patient will be continued on combination of Zoloft and Seroquel. 2. Provide the patient with supportive therapy and reality orientation. I would like to manage the patient to continue with psychiatrist and therapist . Juancarlos Haney M.D. DR: DEE DEE JOB#: [id number] CC:
[2016-08-29 09:06] LABS: OTHERS PATHOLOGIST COMMENT
--- NOTE | 2016-08-29 19:56 | Discharge Summary ---
Discharge Summary Hospital Course Date of Admission Aug 22, 2016 at 22:18 Date of Discharge Aug 28, 2016 at 18:27 Admitting Diagnosis HPI Evette Torres is a 66 year old female who was admitted on Aug 22, 2016 at 22:18 for Pneumonia, Hemoptysis Hospital Course [id number] Discharge Discharge Disposition Patient was discharged to [facility] Discharge Diagnoses: Evette Nguyen NP Aug 29, 2016 19:56
--- NOTE | 2016-08-30 05:47 | Discharge Summary 2 SIG ---
DATE OF ADMISSION: 08/22/2016 DATE OF DISCHARGE: 08/28/2016 CONSULTANTS: 1. Juancarlos Haney M.D. 2. Jordy Messer M.D. 3. Ted Chen M.D. 4. Lance Rudd M.D. BRIEF HOSPITAL COURSE: The patient is a 66-year-old female, who came in complaining of coughing up blood. She has a history of breast CA status post radiation therapy and was diagnosed with metastatic breast CA approximately three months ago and has a mass in the right lung. She was initially taken to [facility] Emergency Room and was stabilized and was transferred to [facility] for insurance purposes. Chest x-ray revealed a 9.5 x 8 cm right upper lobe mass and right lower lobe infiltrate. Dr. Chen and Dr. Rudd were consulted. The patient has postobstructive pneumonia and hemoptysis was due to cancer. CT findings showed a 3 cm cyst arising from the upper lobe branch of the right pulmonary artery, suggestive of tumor invasion into the artery and a 5 cm mass-like necrosis and gas bubble. She was given IV vancomycin and Zosyn. Urine culture showed gram-positive cocci. Sputum culture showed Peyton with gram-negative bacillus. Blood culture did not isolate any growth. She was followed by Dr. Haney and was diagnosed with major depressive disorder and was continued on a combination of Zoloft and Seroquel. The patient has refused chemotherapy and treatment before. The patient was transferred to [facility] for embolization procedure. FINAL DIAGNOSES: 1. Sepsis. 2. Pneumonia. 3. Lung carcinoma. 4. Coronary artery disease. 5. Hypercholesterolemia. 6. Diabetes mellitus type 2, uncontrolled. 7. Hypertension. 8. Acute anemia requiring blood transfusion. 9. Right breast carcinoma. 10. Coronary artery disease. 11. Major depressive disorder. Kvng Alba M.D. I have been assigned to dictate discharge summary on this account and I was not involved in the patient's management. Evette Nguyen N.P. DR: Familia JOB#: [id number] CC:
== END 2016-08-28 18:27 | disposition short-term general hospital (02) | DRG 871 ==
LOC: 2E 22:18 → 4W 08-25 16:44
PROC: 30233N1 Transfusion of Nonautologous Red Blood Cells into Peripheral Vein, Percutaneous Approach (ICD-10-PCS; principal; 2016-08-26)
DX: A41.9 Sepsis, unspecified organism (principal); J18.9 Pneumonia, unspecified organism; I28.1 Aneurysm of pulmonary artery; C78.00 Secondary malignant neoplasm of unspecified lung; C50.919 Malignant neoplasm of unspecified site of unspecified female breast; E11.65 Type 2 diabetes mellitus with hyperglycemia; I10 Essential (primary) hypertension; D63.8 Anemia in other chronic diseases classified elsewhere; R04.2 Hemoptysis; I87.1 Compression of vein; I25.10 Atherosclerotic heart disease of native coronary artery without angina pectoris; Z95.1 Presence of aortocoronary bypass graft; E78.00 Pure hypercholesterolemia, unspecified; F32.9 Major depressive disorder, single episode, unspecified; Z92.3 Personal history of irradiation; Z88.6 Allergy status to analgesic agent; Z87.891 Personal history of nicotine dependence; D50.0 Iron deficiency anemia secondary to blood loss (chronic)
CPT/HCPCS: 36415; 71250; 71260; 80048; 80053; 80202; 82607; 82728; 82962; 83010; 83036; 83540; 83550; 83735; 84100; 85007; 85025; 85044; 85060; 85384; 85610; 85730; 86850; 86900; 86901; 86920; 87040; 87070; 87086; 87181; 87205; 94664; J1815; J2405; J8499